=== PATIENT | female | born 1955 | race Caucasian/White ===

== ENCOUNTER 2017-09-09 10:56 | Observation (INO) | payer OTHER ==
--- NOTE | 2017-09-09 12:29 | PDOC ---
History of Present Illness - General Chief Complaint: Pain, Acute Stated Complaint: LT SIDE/ABD PAIN Time Seen by Provider: 09/09/17 12:16 - History of Present Illness Initial Comments: 09/09/17 12:28 61yo F with history of HTN, asthma, depression, arthritis, hysterectomy, and appendectomy who presents today with LLQ pain that originally started 1 month ago. The patient's pain subsided at that time, however her pain resurfaced this past thursday. She states it's a LLQ pain 6/10 in intensity, however worsens with palpation. Pt reports that the pain is alleviated with defecation and her last BM was a few minutes earlier. She also additionally endorses polyuria, but denies any dysuria or discharge. Pt denies any fever/chills, recent changes in weight, night sweats, nausea, vomiting, SOB, CP/discomfort, palpitations, history of cancer, sick contacts, eating lettuce or other foods. In addition she endorses not drinking enough fluids. Past History - Past Medical History Allergies/Adverse Reactions: Allergies Allergy/AdvReac Type Severity Reaction Status Date / Time codeine Allergy Verified 09/09/17 11:25 Home Medications: Ambulatory Orders Naproxen [Naprosyn -] 500 mg PO BID PRN #12 tablet 11/11/14 Asthma: Yes CVA: No COPD: No DVT: No HTN: Yes Psychiatric Problems: Yes (depression) - Family Disease History Family Disease History: Heart Disease: Father - Immunization History Immunization Up to Date: Yes - Suicide/Smoking/Psychosocial Hx Smoking History: Never smoked Have you smoked in the past 12 months: No Information on smoking cessation initiated: No Hx Alcohol Use: No Drug/Substance Use Hx: No Substance Use Type: None Hx Substance Use Treatment: No *Physical Exam - Vital Signs Last Vital Signs Temp Pulse Resp BP Pulse Ox 98.8 F 81 18 165/95 99 09/09/17 11:26 09/09/17 11:26 09/09/17 11:26 09/09/17 11:26 09/09/17 12:25 ED Treatment Course - LABORATORY CBC & Chemistry Diagram: 09/09/17 12:24 09/09/17 12:24 Medical Decision Making - Medical Decision Making 09/09/17 12:36 61yo F LLQ abdominal pain which is alleviated with BM; no fevers; no nausea; no vomiting --DDX includes diverticulitis vs. UTI vs. constipation vs. gastroenteritis vs. r/o mass vs. colitis? --CBC, CMP, Lipase, UA, Urine culture --Pt on physical exam looks dry: NS 500cc bolus --Pt allergic to codeine: ofirmev for pain control right now 09/09/17 14:25 Labs unremarkable --Of note: WBC WNL, UA without any leuk esterase or WBC, Lipase WNL Pt embarking to CT scan and reports some discomfort, but "is okay right now." No other developing symptoms reported 09/09/17 15:41 CT with acute noncomplicated diverticulitis. Incidentally found R noncalcified lung nodule noted with recommendation of follow-up low-dose CT if comparison isn 't available. --Levaquin 750mg PO --Flagyl 500mg PO --Given SIRS 0/4 will contact PCP to make sure there can be close f/u; if cannot contact or PCP would like can place in obs med/surg for antibiotics. 09/09/17 16:49 Could not get in contact with PCP; After PO medications pt's pain increased --Toradol 30mg IVP once (allergic to codeine) --will contact for obs m/s *DC/Admit/Observation/Transfer Diagnosis at time of Disposition: Diverticulitis - Discharge Dispostion Condition at time of disposition: Stable Admit: Yes - Referrals Referrals: Yovani Viera [Primary Care Provider] - - Patient Instructions Printed Discharge Instructions: DI for Diverticulitis - Post Discharge Activity
[2017-09-09] MEDS ORDERED: SODIUM CHLORIDE 500 ML IV STA ×2 (12:34→15:43)
[2017-09-09] MEDS ORDERED: ACETAMINOPHEN 1000 MG/100 ML VIAL (NON FORMULARY) IVPB ONE (12:35)
[2017-09-09] MEDS ORDERED: ACETAMINOPHEN INJECTION 100 ML IVPB ONE (12:55)
--- NOTE | 2017-09-09 12:55 | PDOC ---
Attending Attestation - Resident Resident Name: Yovani Jackson - ED Attending Attestation I have performed the following: I have examined & evaluated the patient, The case was reviewed & discussed with the resident, I agree w/resident's findings & plan, Exceptions are as noted - HPI HPI: 09/09/17 12:50 Ms Chely Rico is a 61 yo F presenting to the ER with LLQ pain Pt had these symptoms 1 month ago, pain resolved Sx began again thursday (4 days ago) Pain improves after defacation No fevers or chills Has had these symptoms 1 month ago, which self resolved Currently, pain is 6/10, no radiation 09/09/17 13:44 - Physicial Exam PE: 09/09/17 12:54 GENERAL: The patient is in no acute distress. LUNGS: Breath sounds equal, clear to auscultation bilaterally. No wheezes, and no crackles. HEART:Regular rate and rhythm, normal S1 and S2 without murmur, rub or gallop. ABDOMEN: Soft, LLQ tenderness to palpation, no involuntary guarding or rebound EXTREMITIES: Normal range of motion NEUROLOGICAL: Cranial nerves II through XII grossly intact. Normal speech. No focal neurological deficits. MUSCULOSKELETAL: Back non-tender to palpation, no CVA tenderness SKIN: Warm, Dry, normal turgor, no rashes or lesions noted. - Medical Decision Making 09/09/17 13:46 61-year-old female presenting to the emergency department with a complaint of left lower quadrant pain and tenderness. Pain improves after bowel movement. Fever, no chills. No vomiting, no diarrhea. Differential diagnosis includes but is not limited to: Diverticulitis (complicated versus uncomplicated), renal colic, ovarian pathology, Will do labs Will do CT Will re assess 09/11/17 08:00 CT demonstrates acute uncomplicated diverticulitis Pt has severe pain Will place on observation Levaquin and Flagyl Clinical Impression: acute uncomplicated diverticulitis, initial presentation
[2017-09-09 13:03] LABS: URINE APPEARANCE CLEAR; URINE BILIRUBIN NEGATIVE (<2.0 mg/dL); URINE BLOOD NEGATIVE (NEGATIVE); URINE COLOR LTYELLOW; URINE GLUCOSE (UA) NEGATIVE (NEGATIVE); URINE KETONE NEGATIVE (NEGATIVE); URINE LEUK ESTERASE NEGATIVE (NEGATIVE); URINE NITRITE NEGATIVE (NEGATIVE); URINE PROTEIN NEGATIVE (NEGATIVE); URINE UROBILINOGEN NEGATIVE mg/dL (0.2-1.0)
[2017-09-09 13:28] LABS: BASO % 1.1 % (0-2.0); EOS % 2.7 % (0-4.5); HEMATOCRIT 40.3 % (32.4-45.2); HEMOGLOBIN 13.5 GM/dL (10.7-15.3); LYMPH % 19.4 % (8-40); MCH 30.2 pg (25.7-33.7); MCHC 33.5 g/dl (32.0-36.0); MEAN CELL VOLUME 90.3 fl (80-96); MEAN PLT VOLUME 9.5 fl (7.5-11.1); MONO % 5.5 % (3.8-10.2); NEUT % 71.3 % (42.8-82.8); PLATELET COUNT 303 K/MM3 (134-434); RBC 4.47 M/mm3 (3.60-5.2); RDW 13.9 % (11.6-15.6); WHITE BLOOD COUNT 9.4 K/mm3 (4.0-10.0)
[2017-09-09 13:33] LABS: ALBUMIN 4.1 g/dl (3.4-5.0); ALK PHOS 75 U/L (45-117); ANION GAP 8 (8-16); BILIRUBIN,TOTAL 0.5 mg/dL (0.2-1.0); BLOOD UREA NITROGEN 13 mg/dL (7-18); CALCIUM 9.6 mg/dL (8.5-10.1); CHLORIDE 104 mmol/L (98-107); CO2 29 mmol/L (21-32); CREATININE 0.6 mg/dL (0.55-1.02); GLUCOSE,RANDOM 119 mg/dL (74-106); SGPT/ALT 35 U/L (12-78); SODIUM 141 mmol/L (136-145); TOT PROT 8.5 g/dl (6.4-8.2)
[2017-09-09 13:35] LABS: POTASSIUM 4.2 mmol/L (3.5-5.1); SGOT/AST 28 U/L (15-37)
[2017-09-09] MEDS ORDERED: metroNIDAZOLE 500 MG TABLET PO ONE (15:43)
[2017-09-09] MEDS ORDERED: levoFLOXacin 750 MG TABLET PO ONE (15:43)
[2017-09-09] MEDS ORDERED: metroNIDAZOLE 250 MG TABLET ONE (16:03)
[2017-09-09] MEDS ORDERED: KETOROLAC TROMETHAMINE 30 MG/1 ML VIAL IVPUSH ONE (16:46)
[2017-09-09] MEDS ORDERED: SODIUM CHLORIDE 1,000 ML IV SCH (17:00)
[2017-09-09] MEDS ORDERED: KETOROLAC TROMETHAMINE 30 MG/1 ML VIAL ONE (17:29)
[2017-09-09] MEDS ORDERED: PROMETHAZINE HCL 25 MG/1 ML VIAL IVPB PRN (17:41)
[2017-09-09] MEDS ORDERED: morphine CARPU-JECT 4 MG/1 ML DISP.SYRIN IVPUSH PRN (17:42)
[2017-09-09] MEDS ORDERED: ACETAMINOPHEN 1000 MG/100 ML VIAL (NON FORMULARY) IVPB PRN (17:44)
--- NOTE | 2017-09-09 17:45 | HP ---
CHIEF COMPLAINT: LLQ pain PCP: Dr duong villafana HISTORY OF PRESENT ILLNESS: 61yo F with PMH of HTN, asthma, depression, arthritis, who presents today with LLQ pain started on Thursday. Pain was 10/ 10 in intensity, intermittent, cramping type , radiating to back , gets better with bowel movement. Not associated with diarrhoea, blood in stool, nausea, vomiting, burning micturation, blood in urine. Denies loss of weight or change in apatite. Denies fever and chills. Reports she had salad fro [employer] on Thursday which she shared with her . HEr has no symptoms. Never had colonoscopy in past. As per patient her PCP sent her twice but she didn't want to get it done. ER course was notable for: (1)cbc, cmp, ua (2)ct abdoemen (3)IV fluid, levofloxacin and metronidazole. Recent Travel: no PAST MEDICAL HISTORY: as above PAST SURGICAL HISTORY:hystrectomy, appendectomy, tonsilectomy, right knee replacement Social History: Smoking:no Alcohol:no Drugs: no Family History: Allergies codeine Allergy (Verified 09/09/17 11:25) HOME MEDICATIONS: Home Medications Medication Instructions Recorded Naproxen [Naprosyn -] 500 mg PO BID PRN #12 tablet 11/11/14 REVIEW OF SYSTEMS CONSTITUTIONAL: Absent: fever, chills, diaphoresis, generalized weakness, malaise, loss of appetite, weight change HEENT: Absent: rhinorrhea, nasal congestion, throat pain, throat swelling, difficulty swallowing, mouth swelling, ear pain, eye pain, visual changes CARDIOVASCULAR: Absent: chest pain, syncope, palpitations, irregular heart rate, lightheadedness , peripheral edema RESPIRATORY: Absent: cough, shortness of breath, dyspnea with exertion, orthopnea, wheezing, stridor, hemoptysis GASTROINTESTINAL: as above GENITOURINARY: as above MUSCULOSKELETAL: Absent: myalgia, arthralgia, joint swelling, back pain, neck pain SKIN: Absent: rash, itching, pallor HEMATOLOGIC/IMMUNOLOGIC: Absent: easy bleeding, easy bruising, ENDOCRINE: Absent: unexplained weight gain, unexplained weight loss, NEUROLOGIC: Absent: headache, focal weakness or paresthesias, dizziness, PSYCHIATRIC: Absent: anxiety, PHYSICAL EXAMINATION Vital Signs - 24 hr 09/09/17 09/09/17 09/09/17 11:26 12:25 13:35 Temperature 98.8 F Pulse Rate 81 Pulse Rate [ 78 Apical] Respiratory 18 17 Rate Blood Pressure 165/95 Blood Pressure 144/70 [Right Arm] O2 Sat by Pulse 99 99 98 Oximetry (%) GENERAL: Awake, alert, and fully oriented, in no acute distress. HEAD: Normal with no signs of trauma. EARS, NOSE, THROAT: dry mucous membranes. NECK: Normal range of motion, supple without lymphadenopathy, JVD, or masses. LUNGS: Breath sounds equal, clear to auscultation bilaterally. No wheezes, and no crackles. No accessory muscle use. HEART: Regular rate and rhythm, normal S1 and S2 ABDOMEN:soft, tenderness in LLQ, mild rebound tenderness in LLQ, no guarding, no rigidity, NO Renal angle tenderness, BS +. MUSCULOSKELETAL: Normal range of motion at all joints. No bony deformities or tenderness UPPER EXTREMITIES: 2+ pulses, warm, well-perfused. No cyanosis. No clubbing. No peripheral edema. LOWER EXTREMITIES:warm, well-perfused. No calf tenderness. No peripheral edema. NEUROLOGICAL: Cranial nerves II-XII intact. Normal speech. PSYCHIATRIC: Cooperative. Good eye contact. Appropriate mood and affect. SKIN: Warm, dry, Laboratory Results - last 24 hr 09/09/17 09/09/17 09/09/17 12:24 12:24 12:24 WBC 9.4 RBC 4.47 Hgb 13.5 Hct 40.3 MCV 90.3 MCH 30.2 MCHC 33.5 RDW 13.9 Plt Count 303 MPV 9.5 Neutrophils % 71.3 Lymphocytes % 19.4 Monocytes % 5.5 Eosinophils % 2.7 Basophils % 1.1 Sodium 141 Potassium 4.2 Chloride 104 Carbon Dioxide 29 Anion Gap 8 BUN 13 Creatinine 0.6 Creat Clearance w eGFR > 60 Random Glucose 119 H Calcium 9.6 Total Bilirubin 0.5 AST 28 ALT 35 Alkaline Phosphatase 75 Total Protein 8.5 H Albumin 4.1 Lipase Urine Color Ltyellow Urine Appearance Clear Urine pH 6.0 Ur Specific [place] 1.009 Urine Protein Negative Urine Glucose (UA) Negative Urine Ketones Negative Urine Blood Negative Urine Nitrite Negative Urine Bilirubin Negative Urine Urobilinogen Negative Ur Leukocyte Esterase Negative 09/09/17 12:27 WBC RBC Hgb Hct MCV MCH MCHC RDW Plt Count MPV Neutrophils % Lymphocytes % Monocytes % Eosinophils % Basophils % Sodium Potassium Chloride Carbon Dioxide Anion Gap BUN Creatinine Creat Clearance w eGFR Random Glucose Calcium Total Bilirubin AST ALT Alkaline Phosphatase Total Protein Albumin Lipase 140 Urine Color Urine Appearance Urine pH Ur Specific [place] Urine Protein Urine Glucose (UA) Urine Ketones Urine Blood Urine Nitrite Urine Bilirubin Urine Urobilinogen Ur Leukocyte Esterase ASSESSMENT/PLAN: 61yo F with PMH of HTN, asthma, depression, arthritis, who presents today with LLQ pain started on Thursday. Diagnosed wit diverticulitis on CT scan. uncomplicated diverticulitis. IV fluid 125ml/hr NS antibiotics PO levaquin and flagyl for 7-10 days. If unable to tolerate po we will change it to IV. Pain control with acetaminophen. Patient allergic to codine. Monitor intake and output. phenergan for nausea and vomiting. started n clear liquid, if tolerates we will advance her diet in morning. never had colonoscopy in past. during discharge needs a GI referral. Monitor vitals once acute attacks settles down patient needs to be on stool softener. Lung nodule: incidental finding. Try to get old CT of CXR. Monitor, during discharge advise patient to get repeat CT scan in 6months. HTN not on medication. elevated will start her on amlodipine 5mg daily. depression: patient stopped taking her meds 2 year ago. needs to follow up with her psychiatrist after discharge Asthma albuterol prn singulair 10mg daily Fluid: NS 125ml/hr electrolyte: repea in am Nutrition:on clear liquid DVT pro; scd, ambulatory gi pro; pepcid dispo; obs Visit type - Emergency Visit Emergency Visit: Yes Care time: The patient presented to the Emergency Department on the above date and was hospitalized for further evaluation of their emergent condition. - New Patient This patient is new to me today: Yes Date on this admission: 09/09/17 - Critical Care Critical Care patient: No
[2017-09-09] MEDS: SODIUM CHLORIDE 1,000 ML IV SCH ×2 (17:49→21:18)
--- NOTE | 2017-09-09 19:09 | PN ---
Teaching Attending Note Name of Resident: Garland Olvera ATTENDING PHYSICIAN STATEMENT I saw and evaluated the patient. I reviewed the resident's note and discussed the case with the resident. I agree with the resident's findings and plan as documented. SUBJECTIVE: OBJECTIVE: Vital Signs Period Temp Pulse Resp BP Sys/Swanson Pulse Ox Last 24 Hr 98.6 F-98.8 F 77-81 17-18 138-165/70-95 98-99 Laboratory Results - last 24 hr 09/09/17 09/09/17 09/09/17 12:24 12:24 12:24 WBC 9.4 RBC 4.47 Hgb 13.5 Hct 40.3 MCV 90.3 MCH 30.2 MCHC 33.5 RDW 13.9 Plt Count 303 MPV 9.5 Neutrophils % 71.3 Lymphocytes % 19.4 Monocytes % 5.5 Eosinophils % 2.7 Basophils % 1.1 Sodium 141 Potassium 4.2 Chloride 104 Carbon Dioxide 29 Anion Gap 8 BUN 13 Creatinine 0.6 Creat Clearance w eGFR > 60 Random Glucose 119 H Calcium 9.6 Total Bilirubin 0.5 AST 28 ALT 35 Alkaline Phosphatase 75 Total Protein 8.5 H Albumin 4.1 Lipase Urine Color Ltyellow Urine Appearance Clear Urine pH 6.0 Ur Specific [place] 1.009 Urine Protein Negative Urine Glucose (UA) Negative Urine Ketones Negative Urine Blood Negative Urine Nitrite Negative Urine Bilirubin Negative Urine Urobilinogen Negative Ur Leukocyte Esterase Negative 09/09/17 12:27 WBC RBC Hgb Hct MCV MCH MCHC RDW Plt Count MPV Neutrophils % Lymphocytes % Monocytes % Eosinophils % Basophils % Sodium Potassium Chloride Carbon Dioxide Anion Gap BUN Creatinine Creat Clearance w eGFR Random Glucose Calcium Total Bilirubin AST ALT Alkaline Phosphatase Total Protein Albumin Lipase 140 Urine Color Urine Appearance Urine pH Ur Specific [place] Urine Protein Urine Glucose (UA) Urine Ketones Urine Blood Urine Nitrite Urine Bilirubin Urine Urobilinogen Ur Leukocyte Esterase Home Medications Medication Instructions Recorded Naproxen [Naprosyn -] 500 mg PO BID PRN #12 tablet 11/11/14 ASSESSMENT AND PLAN:
[2017-09-09] MEDS: FAMOTIDINE 20 MG/50 ML IVPB 20 MG/50 ML MG IVPB SCH (21:17)
[2017-09-09] MEDS: metroNIDAZOLE 250 MG TABLET PO SCH (21:19)
[2017-09-09 23:59] VITALS: BMI 29.5
[2017-09-10] MEDS ORDERED: PT OWN MED DRAWER 7, Y5N ONE ×2 (05:58→09:34)
[2017-09-10] MEDS: metroNIDAZOLE 250 MG TABLET PO SCH ×2 (05:59→13:45)
[2017-09-10 07:15] LABS: BASO % 1.1 % (0-2.0); HEMATOCRIT 37.4 % (32.4-45.2); HEMOGLOBIN 12.6 GM/dL (10.7-15.3); LYMPH % 22.3 % (8-40); MCH 30.5 pg (25.7-33.7); MCHC 33.7 g/dl (32.0-36.0); MEAN CELL VOLUME 90.5 fl (80-96); MEAN PLT VOLUME 8.9 fl (7.5-11.1); MONO % 7.7 % (3.8-10.2); NEUT % 65.9 % (42.8-82.8); PLATELET COUNT 288 K/MM3 (134-434); RBC 4.13 M/mm3 (3.60-5.2); RDW 13.7 % (11.6-15.6); WHITE BLOOD COUNT 8.4 K/mm3 (4.0-10.0)
[2017-09-10 07:23] LABS: INR 1.22 (0.82-1.09); PROTHROMBIN TIME (PATIENT) 13.8 SEC (9.7-13.0)
[2017-09-10 07:44] LABS: ALBUMIN 3.5 g/dl (3.4-5.0); ALK PHOS 66 U/L (45-117); ANION GAP 4 (8-16); BILIRUBIN,TOTAL 0.5 mg/dL (0.2-1.0); BLOOD UREA NITROGEN 9 mg/dL (7-18); CALCIUM 8.6 mg/dL (8.5-10.1); CHLORIDE 108 mmol/L (98-107); CO2 29 mmol/L (21-32); CREATININE 0.7 mg/dL (0.55-1.02); GLUCOSE,RANDOM 102 mg/dL (74-106); MAGNESIUM 1.8 mg/dL (1.8-2.4); PHOSPHOROUS 2.6 mg/dL (2.5-4.9); POTASSIUM 3.7 mmol/L (3.5-5.1); SGOT/AST 20 U/L (15-37); SGPT/ALT 31 U/L (12-78); SODIUM 141 mmol/L (136-145); TOT PROT 7.5 g/dl (6.4-8.2)
[2017-09-10] MEDS ORDERED: ACETAMINOPHEN 325 MG TABLET (FP) PO PRN (07:50)
[2017-09-10] MEDS ORDERED: levoFLOXacin 750 MG TABLET PO SCH (10:00)
[2017-09-10 11:18] VITALS: BP 155/86; TEMP 98.4
[2017-09-10] MEDS: FAMOTIDINE 20 MG/50 ML IVPB 20 MG/50 ML MG IVPB SCH (11:40)
[2017-09-10] MEDS ORDERED: diazePAM 2 MG TABLET PO ONE (12:30)
--- NOTE | 2017-09-10 12:57 | EKG ---
Test Reason : Blood Pressure : / mmHG Vent. Rate : 085 BPM Atrial Rate : 085 BPM P-R Int : 162 ms QRS Dur : 082 ms QT Int : 384 ms P-R-T Axes : 042 -06 011 degrees QTc Int : 456 ms NORMAL SINUS RHYTHM LOW VOLTAGE QRS BORDERLINE ECG NO PREVIOUS ECGS AVAILABLE Confirmed by AUGUSTO BHATTI MD ([id number]) on 09/10/2017 12:57:01 PM Referred By: Confirmed By:AUGUSTO BHATTI MD
[2017-09-10 14:32] VITALS: PULSE 83
--- NOTE | 2017-09-10 16:25 | DS ---
Physical Exam: Selected Entries 09/10/17 09/10/17 09/10/17 01:11 10:00 14:31 Temperature 98.4 F Pulse Rate 83 Respiratory 20 Rate Blood Pressure 155/86 O2 Sat by Pulse 99 Oximetry (%) Oxygen Delivery Room Air Method Laboratory Tests 09/09/17 09/10/17 09/10/17 12:24 06:55 06:55 WBC 8.4 Hgb 12.6 Hct 37.4 Plt Count 288 INR 1.22 H Sodium Potassium Chloride Carbon Dioxide Anion Gap BUN Creatinine Random Glucose Urine Color Ltyellow Urine Appearance Clear Urine pH 6.0 Ur Specific [place] 1.009 Urine Protein Negative Urine Glucose (UA) Negative Urine Ketones Negative Urine Blood Negative Urine Nitrite Negative Urine Bilirubin Negative Urine Urobilinogen Negative Ur Leukocyte Esterase Negative 09/10/17 06:55 WBC Hgb Hct Plt Count INR Sodium 141 Potassium 3.7 Chloride 108 H Carbon Dioxide 29 Anion Gap 4 L BUN 9 Creatinine 0.7 Random Glucose 102 Urine Color Urine Appearance Urine pH Ur Specific [place] Urine Protein Urine Glucose (UA) Urine Ketones Urine Blood Urine Nitrite Urine Bilirubin Urine Urobilinogen Ur Leukocyte Esterase Microbiology 09/09/17 12:38 Urine - Urine Clean Catch Urine Culture - Final NO GROWTH OBTAINED Abd pelvis ct- uncomplicated acute sigmoid diverticulitis, hepatic steatosis, cholelithiasis, 6mm noncalcified nodule in right lung base is nonspecific. an f/ u with 6-[address] HOSPITAL COURSE: Date of Admission:09/09/17 Date of Discharge: 09/10/17 61yo F with PMH of HTN, asthma, depression, arthritis, who presented with LLQ pain admitted for uncomplicated sigmoid diverticulitis. Patient treated with iv antibioitcs, IVF, and symptom control. She imrpoved and was discharged with po levaquin/flagyl and will complete a 10 day course. She will f/u with her pcp and gi doctor. She will need a colonoscopy in 4 weeks to evaluate her colon. She also had a lung nodule found on abd pelvis ct and can be f/u outpatient. Minutes to complete discharge: 36 Discharge Summary Reason For Visit: DIVERTICULITIS Current Active Problems Diverticulitis (Acute) Asthma (Chronic) Depression (Chronic) HTN (hypertension) (Chronic) Condition: Stable - Instructions Diet, Activity, Other Instructions: You were in the hospital for acute diverticulitis. Diverticulitis is a condition that occurs when small pockets along your intestine called diverticula become inflamed or infected. This is caused by hard bowel movements , food, or bacteria that get stuck in the pockets. Follow up with your primary care provider within 1 week. A referral to our resident clinic has been provided for you if you do not have a primary care physician. Follow up with a GI doctor within 1 week. A referral has been provided for you. You will need a colonoscopy within 4 weeks. Take levaquin 750 mg 1 tablet daily and flagyl 500 mg 1 tablet three times per day for a total of 9 more days (will complete treatment September 19) Continue your other home medications as prescribed. Contact your healthcare provider if: You have pain when you urinate. Your symptoms get worse or do not go away. You have questions or concerns about your condition or care. Return to the emergency department if: You have severe diarrhea. You urinate less than usual or not at all. You are not able to have a bowel movement. You cannot stop vomiting. You have severe abdominal pain, a fever, and your abdomen is larger than usual. You have new or increased blood in your bowel movements. You have chest pain or trouble breathing. Referrals: Javan Santizo MD [Staff Physician] - 1 Week Yovani Viera [Primary Care Provider] - 1 Week Benjamin Palomo DO [Staff Physician] - Disposition: HOME - Home Medications Comprehensive Discharge Medication List: Ambulatory Orders Naproxen [Naprosyn -] 500 mg PO BID PRN #12 tablet 11/11/14 Montelukast Na [Singulair -] 10 mg PO HS tablet 09/10/17 levoFLOXacin [Levaquin] 750 mg PO DAILY #9 tab 09/10/17 metroNIDAZOLE [Flagyl -] 500 mg PO TID #27 tablet 09/10/17 This patient is new to me today: No Emergency Visit: Yes ED Registration Date: 09/09/17 Care time: The patient presented to the Emergency Department on the above date and was hospitalized for further evaluation of their emergent condition. Critical Care patient: No - Discharge Referral Referred to [facility] No
--- NOTE | 2017-09-10 19:26 | PN ---
Teaching Attending Note Name of Resident: Noble Andino ATTENDING PHYSICIAN STATEMENT I saw and evaluated the patient. I reviewed the resident's note and discussed the case with the resident. I agree with the resident's findings and plan as documented. SUBJECTIVE: OBJECTIVE: Vital Signs Period Temp Pulse Resp BP Sys/Swanson Pulse Ox Last 24 Hr 80 F-98.7 F 80-85 20-20 136-155/71-86 99-99 Laboratory Results - last 24 hr 09/10/17 09/10/17 09/10/17 06:55 06:55 06:55 WBC 8.4 RBC 4.13 Hgb 12.6 Hct 37.4 MCV 90.5 MCH 30.5 MCHC 33.7 RDW 13.7 Plt Count 288 MPV 8.9 Neutrophils % 65.9 Lymphocytes % 22.3 Monocytes % 7.7 Eosinophils % 3.0 Basophils % 1.1 PT with INR 13.80 H INR 1.22 H Sodium 141 Potassium 3.7 Chloride 108 H Carbon Dioxide 29 Anion Gap 4 L BUN 9 Creatinine 0.7 Creat Clearance w eGFR > 60 Random Glucose 102 Calcium 8.6 Phosphorus 2.6 Magnesium 1.8 Total Bilirubin 0.5 AST 20 ALT 31 Alkaline Phosphatase 66 Total Protein 7.5 Albumin 3.5 ASSESSMENT AND PLAN:
[2017-09-10] MEDS ORDERED: MONTELUKAST NA 10 MG TABLET PO SCH (22:00)
== END 2017-09-10 18:00 | disposition home or self-care (01) ==
LOC: JER 10:56 → JERFT 10:56 → JERBED 17:12 → J6S 18:40
PROVIDERS: ADMIT Internal Medicine; ATTEND Internal Medicine
PROC: 3E0333Z Introduction of Anti-inflammatory into Peripheral Vein, Percutaneous Approach (ICD-10-PCS; principal; 2017-09-09)
PROC: 3E033GC Introduction of Other Therapeutic Substance into Peripheral Vein, Percutaneous Approach (ICD-10-PCS; 2017-09-09)
PROC: 3E0337Z Introduction of Electrolytic and Water Balance Substance into Peripheral Vein, Percutaneous Approach (ICD-10-PCS; 2017-09-09)
DX: I10 Essential (primary) hypertension (principal); J45.909 Unspecified asthma, uncomplicated; F32.9 Major depressive disorder, single episode, unspecified; M19.90 Unspecified osteoarthritis, unspecified site; Z90.710 Acquired absence of both cervix and uterus; Z90.89 Acquired absence of other organs; Z88.5 Allergy status to narcotic agent
CPT/HCPCS: 36415; 74177-TC; 80053; 81003; 83690; 83735; 84100; 85025; 85610; 87086; 93005; 93010; 99284-25; G0378; J0131; J7030

== ENCOUNTER 2017-09-19 05:03 | Emergency (ER) | payer OTHER ==
--- NOTE | 2017-09-19 05:15 | PDOC ---
History of Present Illness - General Chief Complaint: Nausea/Vomiting Stated Complaint: ABD PAIN Time Seen by Provider: 09/19/17 05:14 History Source: Patient Exam Limitations: No Limitations - History of Present Illness Travel History: No Initial Comments: 09/19/17 05:33 Best Contact: Pmhx: Asthma, arthritis, hypertension, depression, diverticulitis Pshx: Total abdominal hysterectomy, laparoscopic appendectomy Allergies: Codeine/rash 61-year-old female presents to the emergency department complaining of epigastric abdominal discomfort since 0100 hrs. while sleeping. Pain is described as 8/10 achy nonradiating intermittent discomfort with nausea but no vomiting. Patient denies fever, chills, facial pains, neck pains, back pains, chest pain, shortness of breath, flank pain, urinary symptoms: Frequency/urgency /hesitancy, hematuria. Patient states she was recently diagnosed with diverticulitis but this pain is more to her epigastrium. Pt states she made home cook drumsticks and had an "upset stomach" shortly afterwards. Past History - Past Medical History Allergies/Adverse Reactions: Allergies Allergy/AdvReac Type Severity Reaction Status Date / Time codeine Allergy Verified 09/09/17 11:25 Home Medications: Ambulatory Orders Naproxen [Naprosyn -] 500 mg PO BID PRN #12 tablet 11/11/14 Montelukast Na [Singulair -] 10 mg PO HS tablet 09/10/17 levoFLOXacin [Levaquin] 750 mg PO DAILY #9 tab 09/10/17 metroNIDAZOLE [Flagyl -] 500 mg PO TID #27 tablet 09/10/17 Asthma: Yes CVA: No COPD: No DVT: No HTN: Yes Psychiatric Problems: Yes (depression) - Family Disease History Family Disease History: Heart Disease: Father - Immunization History Immunization Up to Date: Yes - Suicide/Smoking/Psychosocial Hx Smoking History: Never smoked Have you smoked in the past 12 months: No Hx Alcohol Use: No Drug/Substance Use Hx: No Substance Use Type: None Hx Substance Use Treatment: No Review of Systems - Review of Systems Able to Perform ROS?: Yes Comments:: 09/19/17 05:33 CONSTITUTIONAL: Absent: fever, chills, diaphoresis, generalized weakness, malaise, loss of appetite HEENT: Absent: rhinorrhea, nasal congestion, throat pain, throat swelling, difficulty swallowing, mouth swelling, ear pain, eye pain, visual Changes CARDIOVASCULAR: Absent: chest pain, loss of consciousness, palpitations, irregular heart rate, peripheral edema RESPIRATORY: Absent: cough, shortness of breath, dyspnea with exertion, orthopnea, wheezing, stridor, hemoptysis GASTROINTESTINAL: +epigastric abd pain Absent: abdominal distension, nausea, vomiting, diarrhea, constipation, melena, hematochezia GENITOURINARY: Absent: dysuria, frequency, urgency, hesitancy, hematuria, flank pain, genital pain MUSCULOSKELETAL: Absent: myalgia, arthralgia, joint swelling SKIN: Absent: rash, itching, pallor HEMATOLOGIC/IMMUNOLOGIC: Absent: easy bleeding, easy bruising, lymphadenopathy, frequent infections Is the patient limited Slovenian proficient: No *Physical Exam - Physical Exam Comments: 09/19/17 05:34 GENERAL: Well developed, well nourished. Awake and alert. No acute distress. HEENT: Normocephalic, atraumatic. PERRLA, EOMI. No conjunctival pallor. Sclera are non- icteric. Moist mucous membranes. Oropharynx is clear. NECK: Supple. Full ROM. No JVD. Carotid pulses 2+ and symmetric, without bruits. No thyromegaly. No lymphadenopathy. CARDIOVASCULAR: Regular rate and rhythm. No murmurs, rubs, or gallops. Distal pulses are 2+ and symmetric. PULMONARY: No evidence of respiratory distress. Lungs clear to auscultation bilaterally. No wheezing, rales or rhonchi. ABDOMINAL: +epigastric pain on palp Soft. Non-tender. No rebound or guarding. No organomegaly. Normoactive bowel sounds. MUSCULOSKELETAL Normal range of motion at all joints. No bony deformities or tenderness. No CVA tenderness. EXTREMITIES: No cyanosis. No clubbing. No edema. No calf tenderness. SKIN: Warm and dry. Normal capillary refill. No rashes. No jaundice. ED Treatment Course - LABORATORY CBC & Chemistry Diagram: 09/19/17 05:18 09/19/17 05:18 Progress Note - Progress Note Progress Note: [id number]: Signed out to Dr. Arriaga *DC/Admit/Observation/Transfer Diagnosis at time of Disposition: Nausea, Epigastric abdominal pain - Discharge Dispostion Disposition: HOME Condition at time of disposition: Stable Admit: No - Referrals Referrals: Yovani Viera [Primary Care Provider] - Leo Romeo MD [Staff Physician] - - Patient Instructions Printed Discharge Instructions: DI for Nausea -- Adult, DI for Epigastric Pain Additional Instructions: Please make an appointment to see your PMD on Thursday. Please stick to clear liquids over the weekend along with the BRAT diet (bananas, rice, apple sauce, and toast). Please follow up with the health safety specialist next week if the pain persists. Please return to the ED with any further complaints. - Post Discharge Activity
[2017-09-19] MEDS ORDERED: SODIUM CHLORIDE 1,000 ML IV STA ×2 (05:16→06:33)
[2017-09-19] MEDS ORDERED: MAG HYDROX/AL HYDROX/SIMETH 30 ML UNIT-DOSE CUP PO ONE (05:16)
[2017-09-19 05:18] VITALS: BMI 35.9
[2017-09-19] MEDS ORDERED: MAG HYDROX/AL HYDROX/SIMETH 30 ML UNIT-DOSE CUP ONE (05:21)
[2017-09-19] MEDS ORDERED: FAMOTIDINE 20 MG/50 ML IVPB 20 MG/50 ML MG IVPB ONE (05:21)
[2017-09-19 05:24] LABS: BASO % 0.5 % (0-2.0); EOS % 1.4 % (0-4.5); HEMATOCRIT 39.7 % (32.4-45.2); HEMOGLOBIN 13.4 GM/dL (10.7-15.3); LYMPH % 13.1 % (8-40); MCH 30.2 pg (25.7-33.7); MCHC 33.6 g/dl (32.0-36.0); MEAN CELL VOLUME 89.7 fl (80-96); MONO % 5.3 % (3.8-10.2); NEUT % 79.7 % (42.8-82.8); PLATELET COUNT 292 K/MM3 (134-434); RBC 4.43 M/mm3 (3.60-5.2); RDW 13.5 % (11.6-15.6); WHITE BLOOD COUNT 12.8 K/mm3 (4.0-10.0)
[2017-09-19 05:53] LABS: ALBUMIN 3.9 g/dl (3.4-5.0); ANION GAP 5 (8-16); BILIRUBIN,TOTAL 0.4 mg/dL (0.2-1.0); BLOOD UREA NITROGEN 16 mg/dL (7-18); CALCIUM 8.9 mg/dL (8.5-10.1); CHLORIDE 101 mmol/L (98-107); CO2 30 mmol/L (21-32); CREATININE 0.8 mg/dL (0.55-1.02); GLUCOSE,RANDOM 145 mg/dL (74-106); LIPASE 143 U/L (73-393); POTASSIUM 3.9 mmol/L (3.5-5.1); SGOT/AST 19 U/L (15-37); SGPT/ALT 34 U/L (12-78); SODIUM 136 mmol/L (136-145); TOT PROT 8.1 g/dl (6.4-8.2)
[2017-09-19 05:55] LABS: ALK PHOS 68 U/L (45-117)
[2017-09-19] MEDS ORDERED: ACETAMINOPHEN 1000 MG/100 ML VIAL (NON FORMULARY) IVPB ONE (06:16)
[2017-09-19] MEDS ORDERED: ONDANSETRON 4 MG/2 ML VIAL IVPUSH ONE (06:32)
[2017-09-19] MEDS ORDERED: morphine CARPU-JECT 2 MG/1 ML DISP.SYRIN IVPUSH ONE (06:32)
[2017-09-19] MEDS ORDERED: ACETAMINOPHEN INJECTION 100 ML IVPB ONE (06:33)
[2017-09-19] MEDS ORDERED: MORPHINE SULFATE 10 MG/1 ML *VIAL ONE (06:42)
[2017-09-19] MEDS ORDERED: ONDANSETRON 4 MG/2 ML VIAL ONE (06:44)
--- NOTE | 2017-09-19 07:32 | PDOC ---
*Physical Exam - Vital Signs Last Vital Signs Temp Pulse Resp BP Pulse Ox 98.2 F 81 18 179/82 100 09/19/17 05:13 09/19/17 05:13 09/19/17 05:13 09/19/17 05:13 09/19/17 05:13 - Physical Exam Comments: 09/19/17 07:31 gen: sleeping, but easily arousable heart: +s1s2 reg Lungs: cta b/l abd: soft, nt/nd +bs Ext: no c/c/e ED Treatment Course - LABORATORY CBC & Chemistry Diagram: 09/19/17 05:18 09/19/17 05:18 - ADDITIONAL ORDERS Additional order review: Laboratory Results 09/19/17 05:18 Sodium 136 Potassium 3.9 Chloride 101 Carbon Dioxide 30 Anion Gap 5 L BUN 16 Creatinine 0.8 Creat Clearance w eGFR > 60 Random Glucose 145 H Calcium 8.9 Total Bilirubin 0.4 AST 19 ALT 34 Alkaline Phosphatase 68 Creatine Kinase 83 Troponin I 0.03 Total Protein 8.1 Albumin 3.9 Lipase 143 09/19/17 05:18 RBC 4.43 MCV 89.7 MCHC 33.6 RDW 13.5 MPV 9.0 Neutrophils % 79.7 D Lymphocytes % 13.1 D Monocytes % 5.3 Eosinophils % 1.4 Basophils % 0.5 - Medications Given in the ED: ED Medications Discontinued Medications Generic Name Dose Route Start Last Admin Trade Name Jasonq PRN Reason Stop Dose Admin Acetaminophen 1,000 mg 09/19/17 06:16 09/19/17 06:32 Ofirmev Injection - IVPB 09/19/17 06:17 1,000 mg ONCE ONE Administration Al Hydroxide/Mg Hydroxide 30 ml 09/19/17 05:16 09/19/17 05:32 Mylanta Oral Suspension - PO 09/19/17 05:17 30 ml ONCE ONE Administration Sodium Chloride 1,000 mls @ 1,000 mls/hr 09/19/17 05:16 09/19/17 05:32 Normal Saline - IV 09/19/17 06:15 1,000 mls/hr ASDIR STA Administration Morphine Sulfate 2 mg 09/19/17 06:32 09/19/17 06:40 Morphine Injection - IVPUSH 09/19/17 06:33 2 mg ONCE ONE Administration Ondansetron HCl 4 mg 09/19/17 06:32 09/19/17 06:40 Zofran Injection IVPUSH 09/19/17 06:33 4 mg ONCE ONE Administration Medical Decision Making - Medical Decision Making 09/19/17 07:31 a/p: 61yo female with abd pain, n that started overnight after eating some chicken -labs reviewed without acute findings pt states pain and nausea has resolved po challenge given discussed lab results with the patient pt wants to go home 09/19/17 07:36 mildly elevated wbc secondary to poss food poisoning vs viral infection 09/19/17 08:34 pt feeling much better tolerated po stable for d/c to home *DC/Admit/Observation/Transfer Diagnosis at time of Disposition: Nausea, Epigastric abdominal pain - Discharge Dispostion Disposition: HOME Condition at time of disposition: Stable Admit: No - Referrals Referrals: Yovani Viera [Primary Care Provider] - Leo Romeo MD [Staff Physician] - - Patient Instructions Printed Discharge Instructions: DI for Nausea -- Adult, DI for Epigastric Pain Additional Instructions: Please make an appointment to see your PMD on Thursday. Please stick to clear liquids over the weekend along with the BRAT diet (bananas, rice, apple sauce, and toast). Please follow up with the floor layer next week if the pain persists. Please return to the ED with any further complaints. - Post Discharge Activity - Attestations Physician Attestion: 09/19/17 08:36 I, Dr. Martha Kellogg, DO, attest that this document has been prepared under my direction and personally reviewed by me in its entirety. I further attest, that it accurately reflects all work, treatment, procedures and medical decision -making performed by me.
[2017-09-19 07:48] VITALS: TEMP 97.5
[2017-09-19 08:35] VITALS: BP 136/85; PULSE 76
--- NOTE | 2017-09-19 08:47 | PDOC ---
*Physical Exam - Vital Signs Last Vital Signs Temp Pulse Resp BP Pulse Ox 97.5 F L 76 16 136/85 96 09/19/17 07:47 09/19/17 08:34 09/19/17 08:34 09/19/17 08:34 09/19/17 08:34 ED Treatment Course - LABORATORY CBC & Chemistry Diagram: 09/19/17 05:18 09/19/17 05:18 - ADDITIONAL ORDERS Additional order review: Laboratory Results 09/19/17 05:18 Sodium 136 Potassium 3.9 Chloride 101 Carbon Dioxide 30 Anion Gap 5 L BUN 16 Creatinine 0.8 Creat Clearance w eGFR > 60 Random Glucose 145 H Calcium 8.9 Total Bilirubin 0.4 AST 19 ALT 34 Alkaline Phosphatase 68 Creatine Kinase 83 Troponin I 0.03 Total Protein 8.1 Albumin 3.9 Lipase 143 09/19/17 05:18 RBC 4.43 MCV 89.7 MCHC 33.6 RDW 13.5 MPV 9.0 Neutrophils % 79.7 D Lymphocytes % 13.1 D Monocytes % 5.3 Eosinophils % 1.4 Basophils % 0.5 - Medications Given in the ED: ED Medications Discontinued Medications Generic Name Dose Route Start Last Admin Trade Name Freq PRN Reason Stop Dose Admin Acetaminophen 1,000 mg 09/19/17 06:16 09/19/17 06:32 Ofirmev Injection - IVPB 09/19/17 06:17 1,000 mg ONCE ONE Administration Al Hydroxide/Mg Hydroxide 30 ml 09/19/17 05:16 09/19/17 05:32 Mylanta Oral Suspension - PO 09/19/17 05:17 30 ml ONCE ONE Administration Sodium Chloride 1,000 mls @ 1,000 mls/hr 09/19/17 05:16 09/19/17 05:32 Normal Saline - IV 09/19/17 06:15 1,000 mls/hr ASDIR STA Administration Sodium Chloride 1,000 mls @ 1,000 mls/hr 09/19/17 06:33 09/19/17 06:40 Normal Saline - IV 09/19/17 07:32 1,000 mls/hr ASDIR STA Administration Morphine Sulfate 2 mg 09/19/17 06:32 09/19/17 06:40 Morphine Injection - IVPUSH 09/19/17 06:33 2 mg ONCE ONE Administration Ondansetron HCl 4 mg 09/19/17 06:32 09/19/17 06:40 Zofran Injection IVPUSH 09/19/17 06:33 4 mg ONCE ONE Administration Medical Decision Making - Medical Decision Making 09/19/17 08:46 Patient comfortable and currently pain free. Understands discharge and follow up instructions. *DC/Admit/Observation/Transfer Diagnosis at time of Disposition: Nausea, Epigastric abdominal pain - Discharge Dispostion Disposition: HOME Condition at time of disposition: Stable Admit: No - Referrals Referrals: Yovani Viera [Primary Care Provider] - Leo Romeo MD [Staff Physician] - - Patient Instructions Printed Discharge Instructions: DI for Nausea -- Adult, DI for Epigastric Pain Additional Instructions: Please make an appointment to see your PMD on Thursday. Please stick to clear liquids over the weekend along with the BRAT diet (bananas, rice, apple sauce, and toast). Please follow up with the grazing examiner next week if the pain persists. Please return to the ED with any further complaints. - Post Discharge Activity
[2017-09-19] MEDS ORDERED: FAMOTIDINE IV 20 MG/12 ML VIAL IVPUSH SCH (10:00)
--- NOTE | 2017-09-19 14:33 | EKG ---
Test Reason : Blood Pressure : / mmHG Vent. Rate : 070 BPM Atrial Rate : 070 BPM P-R Int : 152 ms QRS Dur : 080 ms QT Int : 396 ms P-R-T Axes : 000 181 175 degrees QTc Int : 427 ms NORMAL SINUS RHYTHM RIGHT SUPERIOR AXIS DEVIATION LOW VOLTAGE QRS CANNOT RULE OUT ANTERIOR INFARCT , AGE UNDETERMINED T WAVE ABNORMALITY, CONSIDER INFERIOR ISCHEMIA ABNORMAL ECG WHEN COMPARED WITH ECG OF 09-SEP-2017 17:52, QRS AXIS SHIFTED LEFT T WAVE INVERSION NOW EVIDENT IN LATERAL LEADS Confirmed by MD Cory, Darin ([id number]) on 09/19/2017 2:32:57 PM Referred By: Confirmed By:Darin Ray MD
== END 2017-09-19 08:52 | disposition home or self-care (01) ==
LOC: JER 05:03
PROC: 3E033GC Introduction of Other Therapeutic Substance into Peripheral Vein, Percutaneous Approach (ICD-10-PCS; principal; 2017-09-19)
PROC: 3E033NZ Introduction of Analgesics, Hypnotics, Sedatives into Peripheral Vein, Percutaneous Approach (ICD-10-PCS; 2017-09-19)
PROC: 3E033NZ Introduction of Analgesics, Hypnotics, Sedatives into Peripheral Vein, Percutaneous Approach (ICD-10-PCS; 2017-09-19)
DX: R10.13 Epigastric pain (principal); R11.2 Nausea with vomiting, unspecified; I10 Essential (primary) hypertension; J45.909 Unspecified asthma, uncomplicated; M12.9 Arthropathy, unspecified; F32.9 Major depressive disorder, single episode, unspecified; K57.92 Diverticulitis of intestine, part unspecified, without perforation or abscess without bleeding
CPT/HCPCS: 36415; 71046-TC-FY; 80053; 82550; 83690; 84484; 85025; 93005; 93010; 99282-25; J0131; J7030

== ENCOUNTER 2017-11-16 11:28 | Day surgery (SDC) | payer OTHER ==
--- NOTE | 2017-11-16 12:12 | PROC ---
Endoscopy Procedure Endoscopy procedure completed. Please see scanned procedure report.
[2017-11-16 12:21] VITALS: BMI 28.6
[2017-11-16] MEDS ORDERED: PROPOFOL 20 ML ONE ×2 (12:44)
[2017-11-16 13:40] VITALS: TEMP 98.5
[2017-11-16 14:38] VITALS: BP 125/66; PULSE 73
--- NOTE | 2017-11-19 17:04 | PATH ---
Surgical Pathology Report Patient Name: LUCAS ALICIA [facility]. Rec. #: [id number] /Age/Gender: 1955 (Age: 61) / F Account: [id number] Location: [facility]ENDOSCOPY Taken: 11/16/2017 Received: 11/17/2017 Reported: 11/19/2017 Physicians: Jim Trevino M.D. Specimen(s) Received POLYP SIGMOID Clinical History Screening colonoscopy Final Diagnosis SIGMOID COLON, POLYP, POLYPECTOMY: TUBULAR ADENOMA. Electronically Signed Maggie Brown M.D. Gross Description Received in formalin labeled "polyp from sigmoid colon," is a 0.5 cm in greatest dimension shearer, polypoid portion of soft tissue. The specimen is submitted in toto in one cassette. /11/17/201711/17/2017
== END 2017-11-16 14:44 | disposition home or self-care (01) ==
LOC: JASU-ENDO 11:28
PROVIDERS: ATTEND Internal Medicine Gastroenterology
PROC: 3E0H8GC Introduction of Other Therapeutic Substance into Lower GI, Via Natural or Artificial Opening Endoscopic (ICD-10-PCS; 2017-11-16)
PROC: 0DBN8ZX Excision of Sigmoid Colon, Via Natural or Artificial Opening Endoscopic, Diagnostic (ICD-10-PCS; principal; 2017-11-16 12:15)
DX: Z12.11 Encounter for screening for malignant neoplasm of colon (principal); D12.5 Benign neoplasm of sigmoid colon; K57.30 Diverticulosis of large intestine without perforation or abscess without bleeding
CPT/HCPCS: 88305-TC

== ENCOUNTER 2018-01-16 08:25 | Inpatient (IN) | payer OTHER ==
[2018-01-16 08:29] VITALS: BMI 28.5
[2018-01-16] MEDS ORDERED: ACETAMINOPHEN 1000 MG/100 ML VIAL (NON FORMULARY) IVPB ONE (09:20)
[2018-01-16] MEDS ORDERED: MAG HYDROX/AL HYDROX/SIMETH 30 ML UNIT-DOSE CUP PO ONE (09:20)
[2018-01-16] MEDS ORDERED: SUCRALFATE 1 GM TABLET (FP) PO ONE (09:20)
[2018-01-16] MEDS ORDERED: ONDANSETRON 4 MG/2 ML VIAL IVPB ONE (09:22)
[2018-01-16] MEDS ORDERED: FAMOTIDINE 20 MG/50 ML IVPB 20 MG/50 ML MG IVPB ONE ×2 (09:22→09:30)
--- NOTE | 2018-01-16 09:26 | PDOC ---
History of Present Illness - General Chief Complaint: Nausea/Vomiting Stated Complaint: ABD PAIN, NAUSEA/VOMITING Time Seen by Provider: 01/16/18 08:55 - History of Present Illness Initial Comments: 01/16/18 09:19 62 yo F with h/o diverticulitis, and asthma who p/w epigastric pain. Patient with unremitting, crampy, epigatsric pain beginning at 0700 PM (01/14/18). Pain 10/10. Pain associated with 7 episodes of non bilious, non bloody emesis, with last episode this AM. Denies hematemsis. No identifiable alleviators or triggers. Attempted OTC Mylanta without relief. Normal daily stools. Patient denies F/C, CP, SOB, cough, wheezing, urinary complaints, hematuria, abdominal pain, diarrhea, constipation, BPR, lightheadedness, weakness, sensory changes. PMHx: as noted above. Endosocpy 11/16/17 unremarkable. Colonoscopy 11/16/17 with polyps. Surgical: Appendectomy. ROS: as noted SHx: Denies Etoh, IVDA, tobacco use. No change in diet or recent travels. Allergies: Codeine-Hives GI Dr. Trevino Past History - Past Medical History Allergies/Adverse Reactions: Allergies Allergy/AdvReac Type Severity Reaction Status Date / Time codeine Allergy Verified 01/16/18 08:28 duloxetine [From Cymbalta] AdvReac Intermediate Nausea Verified 01/16/18 08:28 Home Medications: Ambulatory Orders Naproxen [Naprosyn -] 500 mg PO BID PRN #12 tablet 11/11/14 Montelukast Na [Singulair -] 10 mg PO HS tablet 09/10/17 Lisinopril [Zestril] 2.5 mg PO DAILY 11/16/17 Prednisone 1 tab PO DAILY 11/16/17 Asthma: Yes CVA: No COPD: No DVT: No GI Disorders: Yes (DIVERTICULITIS) HTN: Yes Psychiatric Problems: Yes (depression) - Surgical History Appendectomy: Yes Orthopedic Surgery: Yes (RTKR) - Family Disease History Family Disease History: Heart Disease: Father - Immunization History Immunization Up to Date: Yes - Suicide/Smoking/Psychosocial Hx Smoking History: Never smoked Have you smoked in the past 12 months: No Hx Alcohol Use: No Drug/Substance Use Hx: No Substance Use Type: None Hx Substance Use Treatment: No Review of Systems - Review of Systems Comments:: 01/16/18 09:25 GENERAL/CONSTITUTIONAL: No fever or chills. No weakness. HEAD, EYES, EARS, NOSE AND THROAT: No change in vision. No ear pain or discharge. No sore throat. CARDIOVASCULAR: No chest pain or shortness of breath RESPIRATORY: No cough+ Abdominal pain and nausea and vomiting.No diarrhea or constipation. GENITOURINARY: No dysuria, frequency, or change in urination. MUSCULOSKELETAL: No joint or muscle swelling or pain. No neck or back pain. SKIN: No rash NEUROLOGIC: No headache, vertigo, loss of consciousness, or change in strength/ sensation. ENDOCRINE: No increased thirst. No abnormal weight change HEMATOLOGIC/LYMPHATIC: No anemia, easy bleeding, or history of blood clots. ALLERGIC/IMMUNOLOGIC: No hives or skin allergy. *Physical Exam - Vital Signs Last Vital Signs Temp Pulse Resp BP Pulse Ox 98.0 F 88 18 160/102 99 01/16/18 08:26 01/16/18 08:26 01/16/18 08:26 01/16/18 08:26 01/16/18 08:26 - Physical Exam Comments: 01/16/18 09:26 GENERAL: Awake, alert, and fully oriented, in no acute distress HEAD: No signs of trauma, normocephalic, atraumatic EYES: PERRLA, EOMI, sclera anicteric, conjunctiva clear ENT: Hearing grossly normal, nares patent, oropharynx clear without exudates. Moist mucosa NECK: Normal ROM, supple, no lymphadenopathy, JVD, or masses LUNGS: No distress, speaks full sentences, clear to auscultation bilaterally HEART: Regular rate and rhythm, normal S1 and S2, no murmurs, rubs or gallops, peripheral pulses normal and equal bilaterally. ABDOMEN:+ Epigastric ttp. Soft, normoactive bowel sounds. No guarding, no rebound. No masses. Neg CVA ttp. EXTREMITIES : Normal inspection, Normal range of motion, no edema. No clubbing or cyanosis. SKIN: Warm, Dry, normal turgor, no rashes or lesions noted Procedures - NG Lavage NG Lavage: bilious non-bloody ED Treatment Course - LABORATORY CBC & Chemistry Diagram: 01/16/18 09:34 01/16/18 09:34 Medical Decision Making - Medical Decision Making 01/16/18 09:27 62 yo F with h/o diverticulitis, and asthma who p/w epigastirc pain. BP 160/102 , vitals otheriwse wnl, AF. + Epigastirc ttp. ACS/MO r/o. Suspect gastritis, vs. esophagitis. Will consider biliary pathology, pancreatitis. Low suspicion SBO, AAA, mesenteric ischemia, appendicitis, colitis, diverticulosis/, urinary pathology. Will provide antiemetic, pain control, and IVF hydration. ED Course: CBC, CMP, Lipase, UA, Trop Zofran, Maloox, Carafate, Famotidine, NS RUQ U/S CT AP w/CON 01/16/18 09:47 EKG: NSR with absent SHO, STD. Normal interval duration and axis. 01/16/18 10:25 WBC: 12.9 CMP: Unremarkable Trop: Neg Lipase: Neg 01/16/18 11:55 GB U/S: Unremarkable 01/16/18 11:55 UA: Neg 01/16/18 12:11 GB U/S: Cholelithiasis w/out cholecystitis 01/16/18 15:20 CT AP: Distal small bowel obstruction since 09/09/[address] study. Plan to admit Dr. Emily Helms/ yobani on weekends. 01/16/18 18:55 NGT placed at bedside *DC/Admit/Observation/Transfer Diagnosis at time of Disposition: Epigastric abdominal pain, Nausea, Small bowel obstruction - Discharge Dispostion Condition at time of disposition: Stable - Referrals - Patient Instructions - Post Discharge Activity - Attestations Physician Attestion: 01/16/18 09:31 I attest to the information provided in this note.
[2018-01-16] MEDS ORDERED: SODIUM CHLORIDE 1,000 ML IV STA ×2 (09:27→21:38)
[2018-01-16] MEDS ORDERED: SUCRALFATE 1 GM TABLET (FP) ONE (09:30)
[2018-01-16] MEDS ORDERED: ONDANSETRON 4 MG/2 ML VIAL ONE (09:30)
[2018-01-16] MEDS ORDERED: ACETAMINOPHEN INJECTION 100 ML IVPB ONE (09:30)
[2018-01-16] MEDS ORDERED: MAG HYDROX/AL HYDROX/SIMETH 30 ML UNIT-DOSE CUP ONE (09:30)
[2018-01-16 09:45] LABS: BASO % 0.5 % (0-2.0); EOS % 0.1 % (0-4.5); HEMATOCRIT 44.1 % (32.4-45.2); HEMOGLOBIN 14.8 GM/dL (10.7-15.3); LYMPH % 6.3 % (8-40); MCH 30.3 pg (25.7-33.7); MCHC 33.5 g/dl (32.0-36.0); MEAN CELL VOLUME 90.5 fl (80-96); MEAN PLT VOLUME 9.3 fl (7.5-11.1); MONO % 3.5 % (3.8-10.2); NEUT % 89.6 % (42.8-82.8); PLATELET COUNT 298 K/MM3 (134-434); RBC 4.88 M/mm3 (3.60-5.2); RDW 13.9 % (11.6-15.6); WHITE BLOOD COUNT 12.9 K/mm3 (4.0-10.0)
--- NOTE | 2018-01-16 09:57 | PDOC ---
Attending Attestation - Resident Resident Name: Kenroy Gomez - ED Attending Attestation I have performed the following: I have examined & evaluated the patient, The case was reviewed & discussed with the resident, I agree w/resident's findings & plan, Exceptions are as noted - HPI HPI: 01/16/18 09:56 62-year-old female with history of appendectomy, diverticulitis, asthma presents with upper abdominal pain with nausea vomiting since yesterday 7 PM. Patient ate some shrimp with her partner. Her partner is not ill. States that she's developed this persistent upper abdominal pain, which reports burning in origin. This is her second time episode in the last several months. Denies fevers or chills. Her nausea and vomiting had resolved the patient noted that she was having decreased bowel movements. Came to the ER for further evaluation. - Physicial Exam PE: 01/16/18 09:56 GENERAL: Awake, alert, and fully oriented, in no acute distress HEAD: No signs of trauma EYES: EOMI, sclera anicteric, conjunctiva clear ENT: Auricles normal inspection, hearing grossly normal, nares patent,Moist mucosa NECK: Normal ROM, supple ABDOMEN: Soft, No guarding, no rebound. No masses. TTP epigastric. Pinedo sign negative. Some mild discomfort elicited on left sided abdomen EXTREMITIES: Normal range of motion, no edema. No clubbing or cyanosis. No cords, erythema, or tenderness NEUROLOGICAL: Cranial nerves II through XII grossly intact. Normal speech, normal gait SKIN: Warm, Dry, normal turgor, no rashes or lesions noted. - Medical Decision Making 01/16/18 09:56 Vital Signs Temp Pulse Resp BP Pulse Ox 98.0 F 88 18 160/102 99 01/16/18 08:26 01/16/18 08:26 01/16/18 08:26 01/16/18 08:26 01/16/18 08:26 Differential includes food poisoning, gastritis, pancreatitis, gastritis, diverticulitis, colitis, bowel obstruction. I agree that the patient to be evaluated with blood work and right quadrant ultrasound and abdominal/pelvis CT to rule out these findings. 01/16/18 15:16 CBC, BMP 01/16/18 09:34 01/16/18 09:34 CMP Sodium 137 mmol/L (136-145) 01/16/18 09:34 Potassium 4.4 mmol/L (3.5-5.1) 01/16/18 09:34 Chloride 100 mmol/L (98-107) 01/16/18 09:34 Carbon Dioxide 30 mmol/L (21-32) 01/16/18 09:34 Anion Gap 7 MMOL/L (8-16) L 01/16/18 09:34 BUN 15 mg/dL (7-18) 01/16/18 09:34 Creatinine 0.7 mg/dL (0.55-1.02) 01/16/18 09:34 Creat Clearance w eGFR > 60 (>60) 01/16/18 09:34 Random Glucose 130 mg/dL (74-106) H 01/16/18 09:34 Calcium 9.9 mg/dL (8.5-10.1) 01/16/18 09:34 Total Bilirubin 0.6 mg/dL (0.2-1.0) 01/16/18 09:34 AST 23 U/L (15-37) 01/16/18 09:34 ALT 33 U/L (12-78) 01/16/18 09:34 Alkaline Phosphatase 69 U/L (45-117) 01/16/18 09:34 Creatine Kinase 76 IU/L (26-192) 01/16/18 09:34 Troponin I < 0.02 ng/ml (0.00-0.05) 01/16/18 09:34 Total Protein 8.6 g/dl (6.4-8.2) H 01/16/18 09:34 Albumin 4.1 g/dl (3.4-5.0) 01/16/18 09:34 Lipase 275 U/L (73-393) 01/16/18 09:34 Urine Test Results Urine Color Yellow 01/16/18 10:25 Urine Appearance Clear 01/16/18 10:25 Urine pH 6.0 (5.0-8.0) 01/16/18 10:[address] 1.023 (1.001-1.035) 01/16/18 10:25 Urine Protein 2+ (NEGATIVE) H 01/16/18 10:25 Urine Glucose (UA) Negative (NEGATIVE) 01/16/18 10:25 Urine Ketones 1+ (NEGATIVE) H 01/16/18 10:25 Urine Blood Negative (NEGATIVE) 01/16/18 10:25 Urine Nitrite Negative (NEGATIVE) 01/16/18 10:25 Urine Bilirubin Negative (<2.0 mg/dL) 01/16/18 10:25 Ur Leukocyte Esterase Trace (NEGATIVE) 01/16/18 10:25 Ur Epithelial Cells Rare /HPF (FEW) 01/16/18 10:25 Urine Mucus Rare 01/16/18 10:25 CT scan demonstrates a bowel obstruction. Will keep pt NPO, give D5W NS maintenance IVF, pain medication and admit for small bowel obstruction. Heart Score/ECG Review #1 ECG reviewed & interpreted by me at: 09:50 01/16/18 10:02 NSR 74, no std/jake, normal axis, normal intervals, TWI III, T wave flat avF, V4- V5, TWI V3, QTC 446 msec
[2018-01-16 10:05] LABS: ALBUMIN 4.1 g/dl (3.4-5.0); ANION GAP 7 MMOL/L (8-16); BLOOD UREA NITROGEN 15 mg/dL (7-18); CALCIUM 9.9 mg/dL (8.5-10.1); CHLORIDE 100 mmol/L (98-107); CO2 30 mmol/L (21-32); GLUCOSE,RANDOM 130 mg/dL (74-106); POTASSIUM 4.4 mmol/L (3.5-5.1); SGPT/ALT 33 U/L (12-78); SODIUM 137 mmol/L (136-145)
[2018-01-16 10:10] LABS: ALK PHOS 69 U/L (45-117); BILIRUBIN,TOTAL 0.6 mg/dL (0.2-1.0); CREATININE 0.7 mg/dL (0.55-1.02); SGOT/AST 23 U/L (15-37); TOT PROT 8.6 g/dl (6.4-8.2)
[2018-01-16 10:12] LABS: LIPASE 275 U/L (73-393)
[2018-01-16 11:20] LABS: URINE APPEARANCE CLEAR; URINE BILIRUBIN NEGATIVE (<2.0 mg/dL); URINE COLOR YELLOW; URINE GLUCOSE (UA) NEGATIVE (NEGATIVE); URINE KETONE 1+ (NEGATIVE); URINE LEUK ESTERASE TRACE (NEGATIVE); URINE NITRITE NEGATIVE (NEGATIVE); URINE UROBILINOGEN NEGATIVE mg/dL (0.2-1.0)
[2018-01-16 11:24] LABS: URINE PROTEIN 2+ (NEGATIVE)
[2018-01-16 11:28] LABS: EPI CELLS RARE /HPF (FEW); URINE MUCUS RARE
[2018-01-16] MEDS ORDERED: morphine CARPU-JECT 4 MG/1 ML DISP.SYRIN IVPUSH ONE (15:16)
[2018-01-16] MEDS ORDERED: DEXTROSE 5%-NORMAL SALINE 1,000 ML IV SCH (15:30)
[2018-01-16] MEDS ORDERED: morphine SULFATE 4 MG/ML VIAL ONE (15:41)
[2018-01-16] MEDS: SODIUM CHLORIDE 1,000 ML IV SCH (16:53)
--- NOTE | 2018-01-16 19:02 | HP ---
CHIEF COMPLAINT: Abdominal pain PCP: HISTORY OF PRESENT ILLNESS: 62 year-old female with a PMH significant for HTN, diverticulitis (08/2017), asthma, arthritis, depression, s/p four abdominal surgical interventions ( ovarian cyst, hysterectomy, appendectomy, laparoscopic procedure unspecified). Presents with upper abdominal pain with nausea and vomiting since yesterday 3pm. Patient ate some shrimp and shortly after developed abdominal pain. The pain worsened through the evening and then she started wretching/dry heaving with no fluid production. She had about seven episodes of wretching during the night. At the same time, she had about 6-7 bowel movements, formed brown stool. No diarrhea. This morning the pain became intolerable and she came to the ED. NGT was placed in ED. Patient reports she saw a lot of beige fluid with pieces of things in the fluid. This is not documented in the chart. The tube fell out when she got to the floor and was replaced. CXR to verify placement pending. Patient presently denies pain. She has not had any bowel movements since her arrival. She has not passed gas. Recent Travel: No PAST MEDICAL HISTORY: Hypertension Diverticulitis Asthma Arthritis Depression PAST SURGICAL HISTORY: Ovarian cyst Hysterectomy Appendectomy Abdominal laparoscopic procedure NOS Tonsillectomy Right knee replacement Social History: Smoking: teenager Alcohol: no Drugs: no Family History: Allergies codeine Allergy (Verified 01/16/18 08:28) duloxetine [From Cymbalta] Adverse Reaction (Intermediate, Verified 01/16/18 08: 28) Nausea HOME MEDICATIONS: Home Medications Medication Instructions Recorded Naproxen [Naprosyn -] 500 mg PO BID PRN #12 tablet 11/11/14 Montelukast Na [Singulair -] 10 mg PO HS tablet 09/10/17 Lisinopril [Zestril] 2.5 mg PO DAILY 11/16/17 Prednisone 1 tab PO DAILY 11/16/17 REVIEW OF SYSTEMS CONSTITUTIONAL: Absent: fever, chills, diaphoresis, generalized weakness, malaise, loss of appetite, weight change HEENT: Absent: rhinorrhea, nasal congestion, throat pain, throat swelling, difficulty swallowing, mouth swelling, ear pain, eye pain, visual changes CARDIOVASCULAR: Absent: chest pain, syncope, palpitations, irregular heart rate, lightheadedness , peripheral edema RESPIRATORY: Absent: cough, shortness of breath, dyspnea with exertion, orthopnea, wheezing, stridor, hemoptysis GASTROINTESTINAL: +abdominal pain, nausea, dry heaves Absent: abdominal pain, abdominal distension, nausea, vomiting, diarrhea, constipation, melena, hematochezia GENITOURINARY: Absent: dysuria, frequency, urgency, hesitancy, hematuria, flank pain, genital pain MUSCULOSKELETAL: Absent: myalgia, arthralgia, joint swelling, back pain, neck pain SKIN: Absent: rash, itching, pallor HEMATOLOGIC/IMMUNOLOGIC: Absent: easy bleeding, easy bruising, lymphadenopathy, frequent infections ENDOCRINE: Absent: unexplained weight gain, unexplained weight loss, heat intolerance, cold intolerance NEUROLOGIC: Absent: headache, focal weakness or paresthesias, dizziness, unsteady gait, seizure, mental status changes, bladder or bowel incontinence PSYCHIATRIC: Absent: anxiety, depression, suicidal or homicidal ideation, hallucinations. PHYSICAL EXAMINATION Vital Signs - 24 hr 01/16/18 01/16/18 01/16/18 08:26 13:14 18:22 Temperature 98.0 F 99.1 F 98.8 F Pulse Rate 88 Pulse Rate [ 83 78 Left Apical] Respiratory 18 16 16 Rate Blood Pressure 160/102 Blood Pressure 170/93 139/74 [Left Arm] O2 Sat by Pulse 99 100 98 Oximetry (%) GENERAL: Awake, alert, and fully oriented, in no acute distress. HEAD: Normal with no signs of trauma. EYES: Pupils equal, round and reactive to light, extraocular movements intact, sclera anicteric, conjunctiva clear. No lid lag. THROAT: dry mucous membranes SKIN: dry, poor turgor NECK: Normal range of motion, supple without lymphadenopathy, JVD, or masses. LUNGS: Breath sounds equal, clear to auscultation bilaterally. No wheezes, and no crackles. No accessory muscle use. HEART: Regular rate and rhythm, normal S1 and S2 ABDOMEN: Soft, nontender, not distended, hyperactive bowel sounds above the umbilicus, absent bowel sounds below the umbilicus MUSCULOSKELETAL: Normal range of motion at all joints. No bony deformities or tenderness. No CVA tenderness. UPPER EXTREMITIES: 2+ pulses, warm, well-perfused. No cyanosis. No clubbing. No peripheral edema. LOWER EXTREMITIES: 2+ pulses, warm, well-perfused. No calf tenderness. No peripheral edema. NEUROLOGICAL: Cranial nerves II-XII intact. Normal speech. Laboratory Results - last 24 hr 01/16/18 01/16/18 01/16/18 09:34 09:34 10:25 WBC 12.9 H RBC 4.88 Hgb 14.8 Hct 44.1 MCV 90.5 MCH 30.3 MCHC 33.5 RDW 13.9 Plt Count 298 MPV 9.3 Absolute Neuts (auto) 11.5 H Neutrophils % 89.6 H Lymphocytes % 6.3 L D Monocytes % 3.5 L Eosinophils % 0.1 D Basophils % 0.5 Nucleated RBC % 0 Sodium 137 Potassium 4.4 Chloride 100 Carbon Dioxide 30 Anion Gap 7 L BUN 15 Creatinine 0.7 Creat Clearance w eGFR > 60 Random Glucose 130 H Calcium 9.9 Total Bilirubin 0.6 AST 23 ALT 33 Alkaline Phosphatase 69 Creatine Kinase 76 Troponin I < 0.02 Total Protein 8.6 H Albumin 4.1 Lipase 275 Urine Color Yellow Urine Appearance Clear Urine pH 6.0 Ur Specific [place] 1.023 Urine Protein 2+ H Urine Glucose (UA) Negative Urine Ketones 1+ H Urine Blood Negative Urine Nitrite Negative Urine Bilirubin Negative Urine Urobilinogen Negative Ur Leukocyte Esterase Trace Urine WBC (Auto) 5 Urine RBC (Auto) 1 Ur Epithelial Cells Rare Urine Mucus Rare Imaging 01/16/18 US gallbladder: cholelithiasis without evidence of acute cholecystitis; no definite biliary tract dilatation 01/16/18 CTAP: distal SBO since 09/09/17 with right lower pelvic transition area; small amount of free fluid in cul-de-sac and right lower pelvis; interval resolution of acute sigmoid diverticulitis; 2.3cm gallbladder calculus without evidence of acute cholecystitis, no biliary tract dilitation; 0.7cm pancreatic cysts needs nonemergency MRI/MRCP; subcm pulmonary nodule needs 6 month followup ASSESSMENT/PLAN: 62 year-old female with a PMH significant for HTN, diverticulitis (08/2017), asthma, arthritis, depression, s/p multiple abdominal surgeries. Admitted for SBO. Small bowel obstruction Vomiting --NGT to LWS --NS x 1L bolus, then hourly --monitor K closely --surgery consult Dr. Burger --no antibiotics for now Diverticulosis Diverticulitis, resolved --had episode in August, placed on observation here at [facility] 09/09-09/10, treated with antibiotics --[address] Trevino: 8mm tubular adenoma sigmoid colon; mild diverticulosis throughout colon Hypertension --BP is stable --hold PO lisinopril Asthma --well-controlled --does NOT take prednisone daily; med rec corrected --continue Singulair Arthritis --stable --no NSAIDS Depression --no on medication FEN Fluids: NS @ 125mL/hr Electrolyes: replete as indicated Nutrition: NPO DVT prophylaxis: mechanical only, SCDs Dispo: continues to require inpatient care. Full code. Visit type - Emergency Visit Emergency Visit: Yes ED Registration Date: 01/16/18 Care time: The patient presented to the Emergency Department on the above date and was hospitalized for further evaluation of their emergent condition. - New Patient This patient is new to me today: Yes Date on this admission: 01/16/18 - Critical Care Critical Care patient: No Hospitalist Screening - Colonoscopy Questionnaire Colonoscopy Questionnaire: Colonoscopy Questionnaire - Patient: 50 - 75 years old and never had a screening colonoscopy: No History of colon or rectal polyps, or CA: Yes History of IBD, Crohn's disease or UC: No History of abdominal radiation therapy as a child: No - Relative: 1 with colon or rectal CA, or polyps at age 60 or younger: Unknown Colon or rectal CA diagnosed at age 45 or younger: Unknown Multiple relatives with colon or rectal CA: Unknown (Had colonoscopy 11/16/[address] Trevino) - Outcome: Screening Result: Positive Screen
[2018-01-16] MEDS ORDERED: MONTELUKAST NA 10 MG TABLET PO SCH (22:00)
[2018-01-16] MEDS: LORazepam 2 MG/ML SDV VIAL IVPUSH PRN (22:03)
[2018-01-16] MEDS: ACETAMINOPHEN 1000 MG/100 ML VIAL (NON FORMULARY) IVPB PRN (22:30)
--- NOTE | 2018-01-16 23:02 | CONSULT ---
Consult Consult Specialty:: General Surgery Referred by:: Liz Terrell Reason for Consultation:: SBO - History of Present Illness Chief Complaint: upper abdominal pain, n/v History of Present Illness: 62yo F with HTN, asthma, arthritis, panic attacks, h/o diverticulitis 09/02 s/p colonoscopy 12/02 with a polyp and diverticulosis, s/p appendectomy, ovarian cystectomy, hysterectomy, another laparoscopy, R knee replacement, tonsillectomy , pending R breast biopsy, presented with 1 day of upper abdominal pain associated with multiple episodes of N/V/retching, and chills but no fever. She has h/o constipation (daily but hard stools), but had multiple stools yesterday. In ER, she was afebrile, with wbc 12, urine with 1+ ketones, US showing cholelithiasis but no cholecystitis, and CT showing SBO with transition in R pelvis (no oral contrast was given). She was given IVF and NGT was placed with "a lot" of output in ER per pt, light shearer. The tube came out after arriving on floor and was replaced. She got IV Tylenol for a headache, but reports her pain is better, not there anymore since NG has been in. She got Ativan for anxiety and is sleeping comfortably on my arrival to see her in her room on the floor, but wakes easily. Surgery was asked to assess. - History Source History Provided By: Patient Limitations to Obtaining History: No Limitations - Past Medical History Cardio/Vascular: Yes: HTN Pulmonary: Yes: Asthma Gastrointestinal: Yes: Diverticulitis (09/02), Diverticulosis Reproductive: Yes: Postmenopausal Psych: Yes: Anxiety, Depression, Panic Musculoskeletal: Yes: Osteoarthritis Additional Medical History: pending right breast biopsy next week - Past Surgical History Past Surgical History: Yes: Appendectomy, Colonoscopy (12/02), Cystectomy ( ovarian), Hysterectomy, Joint Replacement (R knee), Tonsillectomy Additional Surgical History: laparoscopy (unknown details) - Alcohol/Substance Use Hx Alcohol Use: Yes (occ/social) History of Substance Use: reports: None - Smoking History Smoking history: Never smoked Have you smoked in the past 12 months: No - Social History ADL: Independent Home Medications - Allergies Allergies/Adverse Reactions: Allergies Allergy/AdvReac Type Severity Reaction Status Date / Time codeine Allergy Verified 01/16/18 08:28 duloxetine [From Cymbalta] AdvReac Intermediate Nausea Verified 01/16/18 08:28 - Home Medications Home Medications: Ambulatory Orders Naproxen [Naprosyn -] 500 mg PO BID PRN #12 tablet 11/11/14 Montelukast Na [Singulair -] 10 mg PO HS tablet 09/10/17 Lisinopril [Zestril] 2.5 mg PO DAILY 11/16/17 Home Medications (free text): takes lisinopril "when I don't forget" Family Disease History - Family Disease History Family History: Unremarkable (noncontributory) Review of Systems - Review of Systems Constitutional: reports: Chills. denies: Fever Eyes: reports: Other (reading glasses). denies: Recent Change in Vision HENT: denies: Difficult Swallowing, Throat Pain Neck: denies: Swollen Glands, Tenderness Cardiovascular: denies: Chest Pain, Palpitations Respiratory: denies: Cough, SOB Gastrointestinal: reports: Abdominal Pain (with hpi), Constipation, Nausea ( with hpi), Vomiting (with hpi). denies: Diarrhea Genitourinary: denies: Burning, Dysuria Breasts: reports: Other (abnormal mammo - pending right biopsy next week) Musculoskeletal: denies: Back Pain, Joint Pain, Muscle Pain Integumentary: denies: Change in Color, Rash Neurological: reports: Headache. denies: Dizziness (currently) Psychiatric: reports: Anxiety, Depression, Panic (stopped taking med, not seeing dr for it now) Physical Exam Vital Signs: Vital Signs Temperature 98.5 F 01/16/18 20:44 Pulse Rate 84 01/16/18 20:44 Respiratory Rate 20 01/16/18 20:51 Blood Pressure 139/77 01/16/18 20:44 O2 Sat by Pulse Oximetry (%) 98 01/16/18 20:51 Constitutional: Yes: No Distress, Calm, Obese Eyes: Yes: Conjunctiva Clear, EOM Intact HENT: Yes: Atraumatic, Normocephalic, Other (NGT in place - adjusted to leave ~ 62 at nares, small amt clear output in canister) Neck: Yes: Supple, Trachea Midline Cardiovascular: Yes: Tachycardia. No: Pulse Irregular Respiratory: Yes: Regular, CTA Bilaterally Gastrointestinal: Yes: Soft, Abdomen, Obese, Hypoactive Bowel Sounds, Other ( well-healed scars). No: Tenderness, Tenderness, Epigastrium ...Rectal Exam: Yes: Deferred Renal/: No: CVA Tenderness - Left, CVA Tenderness - Right Musculoskeletal: No: Joint Stiffness, Joint Swelling Extremities: No: Cool, Cyanosis Edema: No Peripheral Pulses WNL: Yes Integumentary: No: Jaundice, Rash Neurological: Yes: Alert, Oriented Psychiatric: Yes: Alert, Oriented Labs: CBC, BMP 01/16/18 09:34 01/16/18 09:34 CMP Sodium 137 mmol/L (136-145) 01/16/18 09:34 Potassium 4.4 mmol/L (3.5-5.1) 01/16/18 09:34 Chloride 100 mmol/L (98-107) 01/16/18 09:34 Carbon Dioxide 30 mmol/L (21-32) 01/16/18 09:34 Anion Gap 7 MMOL/L (8-16) L 01/16/18 09:34 BUN 15 mg/dL (7-18) 01/16/18 09:34 Creatinine 0.7 mg/dL (0.55-1.02) 01/16/18 09:34 Creat Clearance w eGFR > 60 (>60) 01/16/18 09:34 Random Glucose 130 mg/dL (74-106) H 01/16/18 09:34 Calcium 9.9 mg/dL (8.5-10.1) 01/16/18 09:34 Total Bilirubin 0.6 mg/dL (0.2-1.0) 01/16/18 09:34 AST 23 U/L (15-37) 01/16/18 09:34 ALT 33 U/L (12-78) 01/16/18 09:34 Alkaline Phosphatase 69 U/L (45-117) 01/16/18 09:34 Creatine Kinase 76 IU/L (26-192) 01/16/18 09:34 Troponin I < 0.02 ng/ml (0.00-0.05) 01/16/18 09:34 Total Protein 8.6 g/dl (6.4-8.2) H 01/16/18 09:34 Albumin 4.1 g/dl (3.4-5.0) 01/16/18 09:34 Lipase 275 U/L (73-393) 01/16/18 09:34 Urine Test Results Urine Color Yellow 01/16/18 10:25 Urine Appearance Clear 01/16/18 10:25 Urine pH 6.0 (5.0-8.0) 01/16/18 10:25 Ur Specific [place] 1.023 (1.001-1.035) 01/16/18 10:25 Urine Protein 2+ (NEGATIVE) H 01/16/18 10:25 Urine Glucose (UA) Negative (NEGATIVE) 01/16/18 10:25 Urine Ketones 1+ (NEGATIVE) H 01/16/18 10:25 Urine Blood Negative (NEGATIVE) 01/16/18 10:25 Urine Nitrite Negative (NEGATIVE) 01/16/18 10:25 Urine Bilirubin Negative (<2.0 mg/dL) 01/16/18 10:25 Ur Leukocyte Esterase Trace (NEGATIVE) 01/16/18 10:25 Ur Epithelial Cells Rare /HPF (FEW) 01/16/18 10:25 Urine Mucus Rare 01/16/18 10:25 Imaging - Results Chest X-ray: Image Reviewed (NG in stomach) Cat Scan: Report Reviewed, Image Reviewed (images personally reviewed - dilated , fluid-filled SB loops with transition in R pelvic area, no free fluid or air, cholelithiasis without cholecystitis, no diverticulitis) Ultrasound: Report Reviewed (stones without cholecystitis or ductal dilation, fatty liver), Image Reviewed Problem List - Problems (1) Small bowel obstruction due to adhesions Assessment/Plan: admitted to medicine agree with NPO (complete)/NGT/IVF change IVF in am to maintenance with K+ in it trend labs pain is better since NG placed serial AXR - may need to give contrast via NG to follow through if not clearly opening up in next few days nonnarcotic pain meds prn ok GI/DVT prophylaxis will follow with you discussed with MELON PACKER Xander Code(s): K56.50 - INTESTNL ADHESIONS, UNSP TO PARTIAL VERSUS COMPLETE OBST (2) Nausea and vomiting Assessment/Plan: better since NG placed Code(s): R11.2 - NAUSEA WITH VOMITING, UNSPECIFIED Qualifiers: Vomiting type: unspecified Vomiting Intractability: non-intractable Qualified Code(s): R11.2 - Nausea with vomiting, unspecified (3) Upper abdominal pain Assessment/Plan: resolved after NGT Code(s): R10.10 - UPPER ABDOMINAL PAIN, UNSPECIFIED (4) Asthma Assessment/Plan: nebs prn - hold PO meds Code(s): J45.909 - UNSPECIFIED ASTHMA, UNCOMPLICATED Qualifiers: Asthma severity: mild Asthma persistence: intermittent Asthma complication type: uncomplicated Qualified Code(s): J45.20 - Mild intermittent asthma, uncomplicated (5) HTN (hypertension) Assessment/Plan: IV meds prn - hold PO meds Code(s): I10 - ESSENTIAL (PRIMARY) HYPERTENSION Qualifiers: Hypertension type: essential hypertension Qualified Code(s): I10 - Essential (primary) hypertension
[2018-01-17] MEDS: SODIUM CHLORIDE 1,000 ML IV SCH ×2 (05:55→14:35)
[2018-01-17] MEDS: ACETAMINOPHEN 1000 MG/100 ML VIAL (NON FORMULARY) IVPB PRN ×2 (05:55→21:17)
[2018-01-17 07:55] LABS: BASO % 0.6 % (0-2.0); EOS % 1.8 % (0-4.5); HEMATOCRIT 36.9 % (32.4-45.2); HEMOGLOBIN 12.3 GM/dL (10.7-15.3); LYMPH % 15.5 % (8-40); MCH 30.4 pg (25.7-33.7); MCHC 33.3 g/dl (32.0-36.0); MEAN CELL VOLUME 91.2 fl (80-96); MEAN PLT VOLUME 9.3 fl (7.5-11.1); NEUT % 75.1 % (42.8-82.8); PLATELET COUNT 222 K/MM3 (134-434); RBC 4.04 M/mm3 (3.60-5.2); RDW 13.8 % (11.6-15.6); WHITE BLOOD COUNT 9.5 K/mm3 (4.0-10.0)
[2018-01-17 07:59] LABS: INR 1.14 (0.83-1.09); PROTHROMBIN TIME (PATIENT) 12.9 SEC (9.7-13.0)
[2018-01-17 08:38] LABS: ALBUMIN 3.2 g/dl (3.4-5.0); ANION GAP 8 MMOL/L (8-16); BLOOD UREA NITROGEN 7 mg/dL (7-18); CALCIUM 8.1 mg/dL (8.5-10.1); CHLORIDE 105 mmol/L (98-107); CO2 26 mmol/L (21-32); GLUCOSE,RANDOM 109 mg/dL (74-106); MAGNESIUM 2.2 mg/dL (1.8-2.4); SODIUM 139 mmol/L (136-145)
[2018-01-17 08:43] LABS: ALK PHOS 51 U/L (45-117); BILIRUBIN,TOTAL 0.7 mg/dL (0.2-1.0); CREATININE 0.5 mg/dL (0.55-1.02); SGOT/AST 17 U/L (15-37); SGPT/ALT 23 U/L (12-78); TOT PROT 6.5 g/dl (6.4-8.2)
[2018-01-17] MEDS ORDERED: LISINOPRIL 5 MG TABLET (FP) PO SCH (10:00)
[2018-01-17] MEDS ORDERED: PATIENT'S OWN MEDICATION (NON-FORMULARY) (Lisinopril [Zestril] 2.5 MG) PO SCH (10:00)
[2018-01-17] MEDS ORDERED: predniSONE 10 MG TABLET (UD) PO SCH (10:00)
--- NOTE | 2018-01-17 10:30 | PN ---
Physical Exam: SUBJECTIVE: Patient seen and examined sitting on edge of bed. Observed ambulating in hallways. OBJECTIVE: Vital Signs Period Temp Pulse Resp BP Sys/Swanson Pulse Ox Last 24 Hr 98.1 F-99.1 F 78-91 16-20 139-170/74-93 98-100 GENERAL: Awake, alert, and fully oriented, in no acute distress. THROAT: dry mucous membranes LUNGS: Breath sounds equal, clear to auscultation bilaterally. No wheezes, and no crackles. No accessory muscle use. HEART: Regular rate and rhythm, S1 and S2 ABDOMEN: Soft, nontender, not distended UPPER EXTREMITIES: 2+ pulses, warm, well-perfused. No cyanosis. No clubbing. No peripheral edema. LOWER EXTREMITIES: 2+ pulses, warm, well-perfused. No calf tenderness. No peripheral edema. NEUROLOGICAL: Cranial nerves II-XII intact. Normal speech. Steady gait. Laboratory Results - last 24 hr 01/16/18 01/17/18 01/17/18 10:25 07:15 07:15 WBC 9.5 RBC 4.04 Hgb 12.3 Hct 36.9 D MCV 91.2 MCH 30.4 MCHC 33.3 RDW 13.8 Plt Count 222 D MPV 9.3 Absolute Neuts (auto) 7.1 Neutrophils % 75.1 Lymphocytes % 15.5 D Monocytes % 7.0 D Eosinophils % 1.8 D Basophils % 0.6 Nucleated RBC % 0 PT with INR INR Sodium 139 Potassium 4.0 Chloride 105 Carbon Dioxide 26 Anion Gap 8 BUN 7 Creatinine 0.5 L Creat Clearance w eGFR > 60 Random Glucose 109 H Calcium 8.1 L Magnesium 2.2 Total Bilirubin 0.7 AST 17 ALT 23 Alkaline Phosphatase 51 D Total Protein 6.5 D Albumin 3.2 L Urine Color Yellow Urine Appearance Clear Urine pH 6.0 Ur Specific [place] 1.023 Urine Protein 2+ H Urine Glucose (UA) Negative Urine Ketones 1+ H Urine Blood Negative Urine Nitrite Negative Urine Bilirubin Negative Urine Urobilinogen Negative Ur Leukocyte Esterase Trace Urine WBC (Auto) 5 Urine RBC (Auto) 1 Ur Epithelial Cells Rare Urine Mucus Rare Blood Type Antibody Screen 01/17/18 01/17/18 01/17/18 07:15 07:15 08:45 WBC RBC Hgb Hct MCV MCH MCHC RDW Plt Count MPV Absolute Neuts (auto) Neutrophils % Lymphocytes % Monocytes % Eosinophils % Basophils % Nucleated RBC % PT with INR 12.90 INR 1.14 H Sodium Potassium Chloride Carbon Dioxide Anion Gap BUN Creatinine Creat Clearance w eGFR Random Glucose Calcium Magnesium Total Bilirubin AST ALT Alkaline Phosphatase Total Protein Albumin Urine Color Urine Appearance Urine pH Ur Specific [place] Urine Protein Urine Glucose (UA) Urine Ketones Urine Blood Urine Nitrite Urine Bilirubin Urine Urobilinogen Ur Leukocyte Esterase Urine WBC (Auto) Urine RBC (Auto) Ur Epithelial Cells Urine Mucus Blood Type A POSITIVE A POSITIVE Antibody Screen Negative Active Medications Generic Name Dose Route Start Last Admin Trade Name Freq PRN Reason Stop Dose Admin Acetaminophen 1,000 mg 01/16/18 21:46 01/17/18 05:55 Ofirmev Injection - IVPB 1,000 mg Q6H PRN Administration PAIN LEVEL 1-5 Sodium Chloride 1,000 mls @ 125 mls/hr 01/16/18 16:45 01/17/18 05:55 Normal Saline - IV 125 mls/hr ASDIR KRISTIAN Administration Lorazepam 0.5 mg 01/16/18 21:48 01/16/18 22:03 Ativan Injection - IVPUSH 0.5 mg Q6H PRN Administration ANXIETY Imaging 01/16/18 US gallbladder: cholelithiasis without evidence of acute cholecystitis; no definite biliary tract dilatation 01/16/18 CTAP: distal SBO since 09/09/17 with right lower pelvic transition area; small amount of free fluid in cul-de-sac and right lower pelvis; interval resolution of acute sigmoid diverticulitis; 2.3cm gallbladder calculus without evidence of acute cholecystitis, no biliary tract dilitation; 0.7cm pancreatic cysts needs nonemergency MRI/MRCP; subcm pulmonary nodule needs 6 month followup 01/17/18 FUA: resolving SBO ASSESSMENT/PLAN: 62 year-old female with a PMH significant for HTN, diverticulitis (08/2017), asthma, arthritis, depression, s/p multiple abdominal surgeries. Admitted for SBO. Small bowel obstruction, improving --today's FUA shows resolving SBO, no BM or flatus yet --maintain NGT to LWS --repeat abdominal film in am --surgery following Diverticulosis, stable --had episode of diverticulitis in 08/2017 treated with antibiotics --11/16 colonoscopy: 8mm tubular adenoma sigmoid colon; mild diverticulosis throughout colon Hypertension --BP is elevated --start enalaprit 0.625mg q6h Asthma --well-controlled --does NOT take prednisone daily; med rec corrected --continue Singulair Arthritis --stable --no NSAIDS Depression --no on medication FEN Fluids: NS @ 125mL/hr Electrolyes: replete as indicated Nutrition: NPO DVT prophylaxis: mechanical only, SCDs Dispo: continues to require inpatient care. Full code. Visit type - Emergency Visit Emergency Visit: Yes ED Registration Date: 01/16/18 Care time: The patient presented to the Emergency Department on the above date and was hospitalized for further evaluation of their emergent condition. - New Patient This patient is new to me today: No - Critical Care Critical Care patient: No
--- NOTE | 2018-01-17 15:58 | PN ---
Progress Note, Physician History of Present Illness: Pt with SBO, NPO with NGT and IVF. Seen and examined in room with son at bedside and one on videophone. Pt states no pain, no flatus or BM yet, voiding ok. Ambulating to bathroom, went down for AXR, which shows much less gas in bowel, stool throughout colon, improved from yesterday. NG output about 100ml overnight, only about 200ml clear/green-tinged in canister now. Pt still notes some nausea, but overall feeling better. Also c/o feeling dry in mouth. - Current Medication List Current Medications: Active Medications Acetaminophen (Ofirmev Injection -) 1,000 mg IVPB Q6H PRN PRN Reason: PAIN LEVEL 1-5 Last Admin: 01/17/18 05:55 Dose: 1,000 mg Sodium Chloride (Normal Saline -) 1,000 mls @ 125 mls/hr IV ASDIR KRISTIAN Last Admin: 01/17/18 14:35 Dose: 125 mls/hr Lorazepam (Ativan Injection -) 0.5 mg IVPUSH Q6H PRN PRN Reason: ANXIETY Last Admin: 01/16/18 22:03 Dose: 0.5 mg - Objective Vital Signs: Vital Signs Temperature 98.7 F 01/17/18 15:23 Pulse Rate 83 01/17/18 15:23 Respiratory Rate 20 01/17/18 15:23 Blood Pressure 147/77 01/17/18 15:23 O2 Sat by Pulse Oximetry (%) 98 01/16/18 20:51 Constitutional: Yes: No Distress, Calm, Obese Eyes: Yes: Conjunctiva Clear, EOM Intact HENT: Yes: Atraumatic, Normocephalic, Other (NG in place, sumped ok) Gastrointestinal: Yes: Soft, Abdomen, Obese. No: Distention (no tympany), Tenderness, Vomiting ...Rectal Exam: Yes: Deferred Musculoskeletal: No: Joint Stiffness, Joint Swelling Extremities: No: Cool, Cyanosis Integumentary: No: Jaundice, Rash Neurological: Yes: Alert, Oriented Labs: CBC, BMP 01/17/18 07:15 01/17/18 07:15 INR, PTT INR 1.14 (0.83-1.09) H 01/17/18 07:15 wbc down to normal better hydrated K normal - ....Imaging X-ray: Report Reviewed, Image Reviewed (images personally reviewed - minimal gas in bowel, much less distended loops, appearance of stool throughout colon, NG in stomach - improved from yesterday) Problem List - Problems (1) Small bowel obstruction due to adhesions Assessment/Plan: continue NPO (complete)/NGT/IVF change IVF to maintenance with K+ in it trend labs ok to ambulate in halls with tube clamped temporarily if doing ok later, may clamp tube overnight serial AXR - ordered for am nonnarcotic pain meds prn ok GI/DVT prophylaxis will follow with you Code(s): K56.50 - INTESTNL ADHESIONS, UNSP TO PARTIAL VERSUS COMPLETE OBST (2) Nausea and vomiting Assessment/Plan: improved, still with some nausea if tube gets clamped overnight, would return to suction for nausea or vomiting Code(s): R11.2 - NAUSEA WITH VOMITING, UNSPECIFIED Qualifiers: Vomiting type: unspecified Vomiting Intractability: non-intractable Qualified Code(s): R11.2 - Nausea with vomiting, unspecified (3) Upper abdominal pain Assessment/Plan: resolved Code(s): R10.10 - UPPER ABDOMINAL PAIN, UNSPECIFIED (4) Asthma Assessment/Plan: nebs prn - hold PO meds Code(s): J45.909 - UNSPECIFIED ASTHMA, UNCOMPLICATED Qualifiers: Asthma severity: mild Asthma persistence: intermittent Asthma complication type: uncomplicated Qualified Code(s): J45.20 - Mild intermittent asthma, uncomplicated (5) HTN (hypertension) Assessment/Plan: IV meds prn - hold PO meds Code(s): I10 - ESSENTIAL (PRIMARY) HYPERTENSION Qualifiers: Hypertension type: essential hypertension Qualified Code(s): I10 - Essential (primary) hypertension
[2018-01-17] MEDS: D5-1/2NS+20 MEQ KCL - 20 MEQ/1,000 ML INFUS.BAG IV SCH (17:00)
[2018-01-18] MEDS: D5-1/2NS+20 MEQ KCL - 20 MEQ/1,000 ML INFUS.BAG IV SCH ×2 (02:44→12:12)
[2018-01-18] MEDS: ACETAMINOPHEN 1000 MG/100 ML VIAL (NON FORMULARY) IVPB PRN (02:44)
[2018-01-18 08:17] LABS: BASO % 0.5 % (0-2.0); EOS % 3.7 % (0-4.5); HEMATOCRIT 36.8 % (32.4-45.2); LYMPH % 23.5 % (8-40); MCH 29.8 pg (25.7-33.7); MCHC 32.5 g/dl (32.0-36.0); MEAN CELL VOLUME 91.6 fl (80-96); MEAN PLT VOLUME 9.5 fl (7.5-11.1); MONO % 8.9 % (3.8-10.2); NEUT % 63.4 % (42.8-82.8); PLATELET COUNT 217 K/MM3 (134-434); RBC 4.02 M/mm3 (3.60-5.2); RDW 13.8 % (11.6-15.6); WHITE BLOOD COUNT 7.9 K/mm3 (4.0-10.0)
[2018-01-18 08:37] LABS: ALBUMIN 3.2 g/dl (3.4-5.0); ANION GAP 7 MMOL/L (8-16); BLOOD UREA NITROGEN 6 mg/dL (7-18); CALCIUM 8.8 mg/dL (8.5-10.1); CHLORIDE 105 mmol/L (98-107); CO2 30 mmol/L (21-32); GLUCOSE,RANDOM 120 mg/dL (74-106); MAGNESIUM 2.1 mg/dL (1.8-2.4); POTASSIUM 3.7 mmol/L (3.5-5.1); SODIUM 142 mmol/L (136-145)
[2018-01-18 08:42] LABS: ALK PHOS 50 U/L (45-117); BILIRUBIN,TOTAL 0.6 mg/dL (0.2-1.0); CREATININE 0.5 mg/dL (0.55-1.02); SGOT/AST 19 U/L (15-37); SGPT/ALT 21 U/L (12-78); TOT PROT 6.5 g/dl (6.4-8.2)
[2018-01-18] MEDS: ENALAPRILAT DIHYDRATE 1.25 MG/1 ML VIAL IVPB SCH ×2 (09:03→16:10)
--- NOTE | 2018-01-18 11:33 | PN ---
Physical Exam: SUBJECTIVE: Patient seen and examined. Had BM this am and +flatus. Had some abdominal pain overnight, nothing today. OBJECTIVE: Vital Signs Period Temp Pulse Resp BP Sys/Swanson Pulse Ox Last 24 Hr 79 F-98.7 F 73-89 18-20 138-155/64-86 95-97 GENERAL: Awake, alert, and fully oriented, in no acute distress. NGT in place draining greenish fluid. LUNGS: Breath sounds equal, clear to auscultation bilaterally. HEART: Regular rate and rhythm, S1 and S2 ABDOMEN: Soft, nontender, not distended, +BS x 4 UPPER EXTREMITIES: 2+ pulses, warm, well-perfused. No cyanosis. No clubbing. No peripheral edema. LOWER EXTREMITIES: 2+ pulses, warm, well-perfused. No calf tenderness. No peripheral edema. No calf tenderness. NEUROLOGICAL: Cranial nerves II-XII intact. Normal speech. Steady gait. Laboratory Results - last 24 hr 01/18/18 01/18/18 07:00 07:00 WBC 7.9 RBC 4.02 Hgb 12.0 Hct 36.8 MCV 91.6 MCH 29.8 MCHC 32.5 RDW 13.8 Plt Count 217 MPV 9.5 Absolute Neuts (auto) 5.0 Neutrophils % 63.4 Lymphocytes % 23.5 D Monocytes % 8.9 Eosinophils % 3.7 D Basophils % 0.5 Nucleated RBC % 0 Sodium 142 Potassium 3.7 Chloride 105 Carbon Dioxide 30 Anion Gap 7 L BUN 6 L Creatinine 0.5 L Creat Clearance w eGFR > 60 Random Glucose 120 H Calcium 8.8 Magnesium 2.1 Total Bilirubin 0.6 AST 19 ALT 21 Alkaline Phosphatase 50 Total Protein 6.5 Albumin 3.2 L Active Medications Generic Name Dose Route Start Last Admin Trade Name Freq PRN Reason Stop Dose Admin Acetaminophen 1,000 mg 01/16/18 21:46 01/18/18 02:44 Ofirmev Injection - IVPB 1,000 mg Q6H PRN Administration PAIN LEVEL 1-5 Enalaprilat 0.625 mg 01/18/18 09:00 01/18/18 09:03 Vasotec Injection - IVPB 0.625 mg Q6H-IV KRISTIAN Administration Potassium Chloride/Dextrose/Sod Cl 20 meq in 1,000 mls @ 125 mls/hr 01/17/18 16:15 01/18/18 02:44 D5-1/2ns+20 Meq Kcl - IV 125 mls/hr ASDIR KRISTIAN Administration Lorazepam 0.5 mg 01/16/18 21:48 01/16/18 22:03 Ativan Injection - IVPUSH 0.5 mg Q6H PRN Administration ANXIETY Imaging 01/16/18 US gallbladder: cholelithiasis without evidence of acute cholecystitis; no definite biliary tract dilatation 01/16/18 CTAP: distal SBO since 09/09/17 with right lower pelvic transition area; small amount of free fluid in cul-de-sac and right lower pelvis; interval resolution of acute sigmoid diverticulitis; 2.3cm gallbladder calculus without evidence of acute cholecystitis, no biliary tract dilitation; 0.7cm pancreatic cysts needs nonemergency MRI/MRCP; subcm pulmonary nodule needs 6 month followup 01/17/18 FUA: resolving SBO ASSESSMENT/PLAN: 62 year-old female with a PMH significant for HTN, diverticulitis (08/2017), asthma, arthritis, depression, s/p multiple abdominal surgeries. Admitted for SBO. Small bowel obstruction, improving --+BM +flatus today --NGT put out 400cc's in past 24 hours --01/18 FUA pending --continue NGT to [facility] --surgery following Diverticulosis, stable --had episode of diverticulitis in 08/2017 treated with antibiotics --11/16 colonoscopy: 8mm tubular adenoma sigmoid colon; mild diverticulosis throughout colon Hypertension --BP is elevated --start enalaprit 0.625mg q6h Asthma --well-controlled --does NOT take prednisone daily; med rec corrected --continue Singulair Arthritis --stable --no NSAIDS Depression --no on medication FEN Fluids: D51/2NS+20K@125mL/hr Electrolyes: replete as indicated Nutrition: NPO DVT prophylaxis: mechanical only, SCDs Dispo: continues to require inpatient care. Full code. Visit type - Emergency Visit Emergency Visit: Yes ED Registration Date: 01/16/18 Care time: The patient presented to the Emergency Department on the above date and was hospitalized for further evaluation of their emergent condition. - New Patient This patient is new to me today: No - Critical Care Critical Care patient: No
--- NOTE | 2018-01-18 14:01 | EKG ---
Test Reason : Blood Pressure : / mmHG Vent. Rate : 074 BPM Atrial Rate : 074 BPM P-R Int : 158 ms QRS Dur : 084 ms QT Int : 402 ms P-R-T Axes : 049 -02 -03 degrees QTc Int : 446 ms NORMAL SINUS RHYTHM CANNOT RULE OUT ANTERIOR INFARCT (CITED ON OR BEFORE 19-SEP-2017) ABNORMAL ECG WHEN COMPARED WITH ECG OF 19-SEP-2017 05:28, COMPARED TO EKG NO SIGNIFICANT CHANGE IS FOUND Confirmed by XAVIER ANDINO MD ([id number]) on 01/18/2018 2:01:07 PM Referred By: Confirmed By:XAIVER ANDINO MD
--- NOTE | 2018-01-18 14:41 | PN ---
Progress Note, Physician History of Present Illness: Pt with SBO, NPO with NGT and IVF. Seen and examined in room. Pt states no pain , had large BM this am after AXR, voiding ok. Ambulating and passing gas. AXR shows stool in colon, no dilated, gas-filled loops. NG output more earlier - ~ 400 today, but NG in stomach, tip may be near pylorus on XR. Tube clamped earlier today - no nausea, pt is hungry. - Current Medication List Current Medications: Active Medications Enalaprilat (Vasotec Injection -) 0.625 mg IVPB Q6H-IV KRISTIAN Last Admin: 01/18/18 09:03 Dose: 0.625 mg Potassium Chloride/Dextrose/Sod Cl (D5-1/2ns+20 Meq Kcl -) 20 meq in 1,000 mls @ 125 mls/hr IV ASDIR KRISTIAN Last Admin: 01/18/18 02:44 Dose: 125 mls/hr Lorazepam (Ativan Injection -) 0.5 mg IVPUSH Q6H PRN PRN Reason: ANXIETY Last Admin: 01/16/18 22:03 Dose: 0.5 mg - Objective Vital Signs: Vital Signs Temperature 98.2 F 01/18/18 14:24 Pulse Rate 78 01/18/18 14:24 Respiratory Rate 18 01/18/18 14:24 Blood Pressure 146/74 01/18/18 14:24 O2 Sat by Pulse Oximetry (%) 95 01/18/18 09:00 Constitutional: Yes: No Distress, Calm, Obese Eyes: Yes: Conjunctiva Clear, EOM Intact HENT: Yes: Atraumatic, Normocephalic, Other (NG clamped - removed at bedside) Gastrointestinal: Yes: Normal Bowel Sounds, Soft, Abdomen, Obese. No: Tenderness Extremities: No: Cool, Cyanosis Integumentary: No: Jaundice, Rash Neurological: Yes: Alert, Oriented Labs: CBC, BMP 01/18/18 07:00 01/18/18 07:00 - ....Imaging X-ray: Image Reviewed (images reviewed - NG in stomach, no dilated, gas-filled loops, air and stool in colon, moderate stool burden, overall still improved) Problem List - Problems (1) Small bowel obstruction due to adhesions Assessment/Plan: resolving/resolved NG removed ok for clears for dinner, water now if tolerating, may d/c IVF and advance to regular for breakfast may be able to d/c home after lunch tomorrow if doing well pain meds stopped discussed with EL Terrell Code(s): K56.50 - INTESTNL ADHESIONS, UNSP TO PARTIAL VERSUS COMPLETE OBST (2) Nausea and vomiting Assessment/Plan: resolved Code(s): R11.2 - NAUSEA WITH VOMITING, UNSPECIFIED Qualifiers: Vomiting type: unspecified Vomiting Intractability: non-intractable Qualified Code(s): R11.2 - Nausea with vomiting, unspecified (3) Asthma Assessment/Plan: ok to resume singulair Code(s): J45.909 - UNSPECIFIED ASTHMA, UNCOMPLICATED Qualifiers: Asthma severity: mild Asthma persistence: intermittent Asthma complication type: uncomplicated Qualified Code(s): J45.20 - Mild intermittent asthma, uncomplicated (4) HTN (hypertension) Assessment/Plan: lisinopril reordered Code(s): I10 - ESSENTIAL (PRIMARY) HYPERTENSION Qualifiers: Hypertension type: essential hypertension Qualified Code(s): I10 - Essential (primary) hypertension
--- NOTE | 2018-01-19 08:15 | PN ---
Physical Exam: SUBJECTIVE: Patient seen and examined at the bedside. Sitting up eating breakfast, in no acute distress. Expresses some fear about eating and getting abdominal pain, but so far tolerating breakfast. OBJECTIVE: ivf stopped, monitor for nausea/pain +bowel sounds, abdomen soft, non distended, had 2 BMs yesterday Vital Signs Period Temp Pulse Resp BP Sys/Swanson Pulse Ox Last 24 Hr 98.0 F-98.3 F 73-88 18-20 120-155/71-86 95-95 GENERAL: The patient is awake, alert, and fully oriented, in no acute distress. HEAD: Normal with no signs of trauma. EYES: PERRL, extraocular movements intact, sclera anicteric, conjunctiva clear. No ptosis. ENT: Ears normal, nares patent, oropharynx clear without exudates, moist mucous membranes. NECK: Trachea midline, full range of motion, supple. ABDOMEN: Soft, nontender, nondistended, normoactive bowel sounds, no guarding, no rebound, no hepatosplenomegaly, no masses. EXTREMITIES: 2+ pulses, warm, well-perfused, no edema. NEUROLOGICAL: Normal speech, gait not observed. PSYCH: Normal mood, normal affect. SKIN: Warm, dry, normal turgor, no rashes or lesions noted Laboratory Results - last 24 hr 01/18/18 01/18/18 07:00 07:00 WBC 7.9 RBC 4.02 Hgb 12.0 Hct 36.8 MCV 91.6 MCH 29.8 MCHC 32.5 RDW 13.8 Plt Count 217 MPV 9.5 Absolute Neuts (auto) 5.0 Neutrophils % 63.4 Lymphocytes % 23.5 D Monocytes % 8.9 Eosinophils % 3.7 D Basophils % 0.5 Nucleated RBC % 0 Sodium 142 Potassium 3.7 Chloride 105 Carbon Dioxide 30 Anion Gap 7 L BUN 6 L Creatinine 0.5 L Creat Clearance w eGFR > 60 Random Glucose 120 H Calcium 8.8 Magnesium 2.1 Total Bilirubin 0.6 AST 19 ALT 21 Alkaline Phosphatase 50 Total Protein 6.5 Albumin 3.2 L Active Medications Generic Name Dose Route Start Last Admin Trade Name Freq PRN Reason Stop Dose Admin Potassium Chloride/Dextrose/Sod Cl 20 meq in 1,000 mls @ 125 mls/hr 01/17/18 16:15 01/18/18 12:12 D5-1/2ns+20 Meq Kcl - IV 125 mls/hr ASDIR KRISTIAN Administration Lisinopril 2.5 mg 01/19/18 10:00 Prinivil PO DAILY KRISTIAN Lorazepam 0.5 mg 01/16/18 21:48 01/16/18 22:03 Ativan Injection - IVPUSH 0.5 mg Q6H PRN Administration ANXIETY ASSESSMENT/PLAN: Patient is a 62 year old female with a significant past medical history of hypertension, diverticulitis, asthma, arthritis, depression, s/p multiple abdominal surgeries. She presents to the ED on 01/16/18 for epigastric pain, nausea and was found to have an SBO. GI: Small bowel obstruction, resolved. todays xray shows resolved SBO, patient passing gas, no abdominal pain or tenderness. Tolerated diet without nausea or vomiting. IVF discontinued. At apx 6pm, patient c/o of abdominal discomfort. discussed with surgery, will start on carafate, zantac. continue diet. Card: Hypertension, controlled On Lisinopril 2.5 daily Pulm Asthma, in no exacerbation. on singulair. tolerating room air fen oral intake adequate monitor electrolytes tolerating regular diet Visit type - Emergency Visit Emergency Visit: Yes ED Registration Date: 01/16/18 Care time: The patient presented to the Emergency Department on the above date and was hospitalized for further evaluation of their emergent condition. - New Patient This patient is new to me today: Yes Date on this admission: 01/19/18 - Critical Care Critical Care patient: No - Discharge Referral Referred to [facility] Med P.C.: No
[2018-01-19] MEDS: LISINOPRIL 5 MG TABLET (FP) PO SCH (09:03)
[2018-01-19] MEDS: LORazepam 2 MG/ML SDV VIAL IVPUSH PRN (17:31)
[2018-01-19] MEDS ORDERED: SUCRALFATE 1 GM/10 ML UNIT DOSE CUPS PO ONE (18:48)
[2018-01-19] MEDS ORDERED: ACETAMINOPHEN 325 MG TABLET (FP) PO PRN (18:51)
--- NOTE | 2018-01-19 18:57 | PN ---
Progress Note, Physician History of Present Illness: Pt seen and examined in room. Tolerated breakfast and some lunch (states she did not want the pasta), had 2 soft BMs after breakfast. Primary team was going to discharge, but she now has epigastric/subxiphoid pain present since before dinner, not going away, and she had some Ativan for a panic attack. She uses Naprosyn for pain at home prn, back and "overall" pain, and sometimes aspirin. She states she has been afraid to eat. - Current Medication List Current Medications: Active Medications Potassium Chloride/Dextrose/Sod Cl (D5-1/2ns+20 Meq Kcl -) 20 meq in 1,000 mls @ 125 mls/hr IV ASDIR KRISTIAN Last Admin: 01/18/18 12:12 Dose: 125 mls/hr Lisinopril (Prinivil) 2.5 mg PO DAILY [facility] Last Admin: 01/19/18 09:03 Dose: 2.5 mg Lorazepam (Ativan Injection -) 0.5 mg IVPUSH Q6H PRN PRN Reason: ANXIETY Last Admin: 01/19/18 17:31 Dose: 0.5 mg Sucralfate (Carafate Oral Suspension -) 1 gm PO ONCE ONE Stop: 01/19/18 18:49 - Objective Vital Signs: Vital Signs Temperature 98.9 F 01/19/18 14:07 Pulse Rate 83 01/19/18 14:07 Respiratory Rate 18 01/19/18 10:21 Blood Pressure 138/60 01/19/18 14:07 O2 Sat by Pulse Oximetry (%) 95 01/19/18 10:21 Constitutional: Yes: No Distress, Anxious, Obese Eyes: Yes: Conjunctiva Clear, EOM Intact HENT: Yes: Atraumatic, Normocephalic Gastrointestinal: Yes: Soft, Abdomen, Obese, Tenderness, Epigastrium (minimal to deep palpation only, more subxiphoid than epigastric). No: Distention, Tenderness (no tenderness elsewhere) Extremities: No: Cool, Cyanosis Integumentary: No: Jaundice, Rash Neurological: Yes: Alert, Oriented Psychiatric: Yes: Alert, Other (uncomfortable, anxious) Labs: no new labs Problem List - Problems (1) Small bowel obstruction due to adhesions Assessment/Plan: resolved, NG removed tolerated diet, but worried about eating, now with some subxiphoid pain will give carafate now pt requests hot soup - ok to continue diet as tolerated discussed with [employer]NAGER Sheridan will keep tonight Tylenol prn for pain will add antacid scheduled Code(s): K56.50 - INTESTNL ADHESIONS, UNSP TO PARTIAL VERSUS COMPLETE OBST (2) Nausea and vomiting Assessment/Plan: resolved Code(s): R11.2 - NAUSEA WITH VOMITING, UNSPECIFIED Qualifiers: Qualified Code(s): R11.2 - Nausea with vomiting, unspecified (3) Asthma Assessment/Plan: ok to resume singulair Code(s): J45.909 - UNSPECIFIED ASTHMA, UNCOMPLICATED Qualifiers: Qualified Code(s): J45.20 - Mild intermittent asthma, uncomplicated (4) HTN (hypertension) Assessment/Plan: lisinopril as at home Code(s): I10 - ESSENTIAL (PRIMARY) HYPERTENSION Qualifiers: Qualified Code(s): I10 - Essential (primary) hypertension
[2018-01-19] MEDS ORDERED: PANTOPRAZOLE SODIUM 40 MG VIAL IVPUSH ONE (20:09)
[2018-01-19] MEDS ORDERED: morphine SULFATE 4 MG/ML VIAL IVPUSH PRN (20:10)
[2018-01-19] MEDS ORDERED: ONDANSETRON 4 MG/2 ML VIAL IVPUSH PRN (20:11)
[2018-01-19] MEDS ORDERED: MORPHINE SULFATE 2 MG/ML VIAL IVPUSH PRN (20:16)
[2018-01-19] MEDS: SODIUM CHLORIDE 1,000 ML IV SCH (20:33)
[2018-01-19] MEDS: RANITIDINE HCL 150 MG TABLET (FP) PO SCH (21:14)
[2018-01-19 21:29] LABS: BASO % 0.4 % (0-2.0); EOS % 1.4 % (0-4.5); HEMATOCRIT 40.1 % (32.4-45.2); HEMOGLOBIN 13.4 GM/dL (10.7-15.3); LYMPH % 12.2 % (8-40); MCH 30.2 pg (25.7-33.7); MCHC 33.3 g/dl (32.0-36.0); MEAN CELL VOLUME 90.7 fl (80-96); MEAN PLT VOLUME 9.8 fl (7.5-11.1); MONO % 6.2 % (3.8-10.2); NEUT % 79.8 % (42.8-82.8); PLATELET COUNT 271 K/MM3 (134-434); RBC 4.42 M/mm3 (3.60-5.2); RDW 13.8 % (11.6-15.6); WHITE BLOOD COUNT 11.6 K/mm3 (4.0-10.0)
[2018-01-19 21:49] LABS: ANION GAP 12 MMOL/L (8-16); BILIRUBIN,TOTAL 0.4 mg/dL (0.2-1.0); BLOOD UREA NITROGEN 9 mg/dL (7-18); CALCIUM 9.7 mg/dL (8.5-10.1); CHLORIDE 102 mmol/L (98-107); CO2 26 mmol/L (21-32); CREATININE 0.6 mg/dL (0.55-1.02); GLUCOSE,RANDOM 130 mg/dL (74-106); MAGNESIUM 1.9 mg/dL (1.8-2.4); POTASSIUM 3.7 mmol/L (3.5-5.1); SGOT/AST 23 U/L (15-37); SGPT/ALT 37 U/L (12-78); SODIUM 140 mmol/L (136-145); TOT PROT 8.2 g/dl (6.4-8.2)
[2018-01-19 21:50] LABS: ALK PHOS 68 U/L (45-117)
[2018-01-20] MEDS: SODIUM CHLORIDE 1,000 ML IV SCH (06:40)
[2018-01-20] MEDS: RANITIDINE HCL 150 MG TABLET (FP) PO SCH (09:16)
[2018-01-20] MEDS: LISINOPRIL 5 MG TABLET (FP) PO SCH (09:16)
[2018-01-20 10:20] VITALS: BP 152/85; PULSE 72; TEMP 98
[2018-01-20] MEDS ORDERED: MAGNESIUM CITRATE 300 ML BOTTLE PO ONE (10:29)
[2018-01-20] MEDS ORDERED: BISACODYL 10 MG SUPP.RECT RC ONE (10:29)
--- NOTE | 2018-01-20 10:31 | PN ---
Physical Exam: SUBJECTIVE: Patient seen and examined at the bedside. OBJECTIVE: patient seen at the bedside. feels better today. overnight had nausea and one episode of vomiting. kept npo. abdomen soft, non distended, + bowel sounds. discussed with surgery, given mag citrate. dulcolax. had 4 bms. Will give regular diet now and discharge home today. Vital Signs Period Temp Pulse Resp BP Sys/Wsanson Pulse Ox Last 24 Hr 98.0 F-98.9 F 72-83 16-18 138-152/60-85 95-95 GENERAL: The patient is awake, alert, and fully oriented, in no acute distress. HEAD: Normal with no signs of trauma. EYES: PERRL, extraocular movements intact, sclera anicteric, conjunctiva clear. No ptosis. ENT: Ears normal, nares patent, oropharynx clear without exudates, moist mucous membranes. NECK: Trachea midline, full range of motion, supple. ABDOMEN: Soft, nontender, nondistended, normoactive bowel sounds, no guarding, no rebound, no hepatosplenomegaly, no masses. EXTREMITIES: 2+ pulses, warm, well-perfused, no edema. NEUROLOGICAL: Normal speech, gait not observed. PSYCH: Normal mood, normal affect. SKIN: Warm, dry, normal turgor, no rashes or lesions noted Laboratory Results - last 24 hr 01/19/18 01/19/18 20:50 20:50 WBC 11.6 H RBC 4.42 Hgb 13.4 Hct 40.1 MCV 90.7 MCH 30.2 MCHC 33.3 RDW 13.8 Plt Count 271 D MPV 9.8 Absolute Neuts (auto) 9.2 H Neutrophils % 79.8 D Lymphocytes % 12.2 D Monocytes % 6.2 Eosinophils % 1.4 Basophils % 0.4 Nucleated RBC % 0 Sodium 140 Potassium 3.7 Chloride 102 Carbon Dioxide 26 Anion Gap 12 BUN 9 Creatinine 0.6 Creat Clearance w eGFR > 60 Random Glucose 130 H Calcium 9.7 Magnesium 1.9 Total Bilirubin 0.4 AST 23 ALT 37 Alkaline Phosphatase 68 D Total Protein 8.2 Albumin 4.0 Active Medications Generic Name Dose Route Start Last Admin Trade Name Freq PRN Reason Stop Dose Admin Acetaminophen 650 mg 01/19/18 18:51 Tylenol - PO Q6H PRN PAIN LEVEL 4 - 6 Bisacodyl 10 mg 01/20/18 10:29 Dulcolax Suppository - [place] 01/20/18 10:30 ONCE ONE Sodium Chloride 1,000 mls @ 83 mls/hr 01/19/18 20:15 01/20/18 06:40 Normal Saline - IV 83 mls/hr ASDIR KRISTIAN Administration Lisinopril 2.5 mg 01/19/18 10:00 01/20/18 09:16 Prinivil PO 2.5 mg DAILY KRISTIAN Administration Lorazepam 0.5 mg 01/16/18 21:48 01/19/18 17:31 Ativan Injection - IVPUSH 0.5 mg Q6H PRN Administration ANXIETY Magnesium Citrate 300 ml 01/20/18 10:29 Citroma - PO 01/20/18 10:30 ONCE ONE Morphine Sulfate 0.5 mg 01/19/18 20:16 01/19/18 20:29 Morphine Sulfate IVPUSH 0.5 mg Q4H PRN Administration PAIN LEVEL 7 - 10 Ondansetron HCl 4 mg 01/19/18 20:11 01/19/18 20:25 Zofran Injection IVPUSH 4 mg Q6H PRN Administration NAUSEA AND/OR VOMITING Ranitidine HCl 150 mg 01/19/18 22:00 01/20/18 09:16 Zantac - PO 150 mg BID KRISTIAN Administration ASSESSMENT/PLAN: Patient is a 62 year old female with a significant past medical history of hypertension, diverticulitis, asthma, arthritis, depression, s/p multiple abdominal surgeries. She presents to the ED on 01/16/18 for epigastric pain, nausea and was found to have an SBO. GI: Small bowel obstruction, resolved. Had acute episode of nausea/vomiting and abdominal pain. Repeat abdominal xray negative for acute process. patient passing gas, no abdominal pain or tenderness on exam. Tolerated diet without nausea or vomiting (clears) this morning. regular diet tonight. IVF discontinued. given mag citrate and dulcolax suppository, had 4 bms today. Can leave later today if patient tolerates dinner. Card: Hypertension, controlled On Lisinopril 2.5 daily Pulm Asthma, in no exacerbation. on singulair. tolerating room air fen oral intake adequate monitor electrolytes tolerating diet full code. Visit type - Emergency Visit Emergency Visit: Yes ED Registration Date: 01/16/18 Care time: The patient presented to the Emergency Department on the above date and was hospitalized for further evaluation of their emergent condition. - New Patient This patient is new to me today: No - Critical Care Critical Care patient: No - Discharge Referral Referred to [facility] Med P.C.: No
[2018-01-20 10:42] LABS: BASO % 0.7 % (0-2.0); EOS % 1.3 % (0-4.5); HEMATOCRIT 38.1 % (32.4-45.2); HEMOGLOBIN 12.8 GM/dL (10.7-15.3); LYMPH % 17.3 % (8-40); MCH 30.6 pg (25.7-33.7); MCHC 33.5 g/dl (32.0-36.0); MEAN CELL VOLUME 91.3 fl (80-96); MEAN PLT VOLUME 9.4 fl (7.5-11.1); MONO % 7.8 % (3.8-10.2); NEUT % 72.9 % (42.8-82.8); PLATELET COUNT 264 K/MM3 (134-434); RBC 4.18 M/mm3 (3.60-5.2); WHITE BLOOD COUNT 8.7 K/mm3 (4.0-10.0)
[2018-01-20 10:57] LABS: CHLORIDE 103 mmol/L (98-107); POTASSIUM 3.8 mmol/L (3.5-5.1); SODIUM 138 mmol/L (136-145)
[2018-01-20 11:26] LABS: ALBUMIN 3.7 g/dl (3.4-5.0); ALK PHOS 63 U/L (45-117); ANION GAP 6 MMOL/L (8-16); BILIRUBIN,TOTAL 0.6 mg/dL (0.2-1.0); BLOOD UREA NITROGEN 9 mg/dL (7-18); CALCIUM 9.2 mg/dL (8.5-10.1); CO2 29 mmol/L (21-32); CREATININE 0.6 mg/dL (0.55-1.02); GLUCOSE,RANDOM 105 mg/dL (74-106); MAGNESIUM 1.9 mg/dL (1.8-2.4); SGOT/AST 34 U/L (15-37); SGPT/ALT 44 U/L (12-78); TOT PROT 7.6 g/dl (6.4-8.2)
--- NOTE | 2018-01-20 16:22 | DS ---
Physical Exam: SUBJECTIVE: Patient seen and examined at the bedside. patient seen at the bedside. feels better today. overnight had nausea and one episode of vomiting. kept npo. abdomen soft, non distended, + bowel sounds. discussed with surgery, given mag citrate. dulcolax. had 4 bms. Will give regular diet now and discharge home today. OBJECTIVE: Vital Signs Period Temp Pulse Resp BP Sys/Swanson Pulse Ox Last 24 Hr 98.0 F-98.5 F 72-83 16-18 140-152/71-85 95-95 PHYSICAL EXAM GENERAL: The patient is awake, alert, and fully oriented, in no acute distress. HEAD: Normal with no signs of trauma. EYES: PERRL, extraocular movements intact, sclera anicteric, conjunctiva clear. No ptosis. ENT: Ears normal, nares patent, oropharynx clear without exudates, moist mucous membranes. NECK: Trachea midline, full range of motion, supple. ABDOMEN: Soft, nontender, nondistended, normoactive bowel sounds, no guarding, no rebound, no hepatosplenomegaly, no masses. EXTREMITIES: 2+ pulses, warm, well-perfused, no edema. NEUROLOGICAL: Normal speech, gait not observed. PSYCH: Normal mood, normal affect. SKIN: Warm, dry, normal turgor, no rashes or lesions noted LABS Laboratory Results - last 24 hr 01/19/18 01/19/18 01/20/18 20:50 20:50 10:10 WBC 11.6 H 8.7 RBC 4.42 4.18 Hgb 13.4 12.8 Hct 40.1 38.1 MCV 90.7 91.3 MCH 30.2 30.6 MCHC 33.3 33.5 RDW 13.8 14.0 Plt Count 271 D 264 MPV 9.8 9.4 Absolute Neuts (auto) 9.2 H 6.4 Neutrophils % 79.8 D 72.9 Lymphocytes % 12.2 D 17.3 D Monocytes % 6.2 7.8 Eosinophils % 1.4 1.3 Basophils % 0.4 0.7 Nucleated RBC % 0 0 Sodium 140 Potassium 3.7 Chloride 102 Carbon Dioxide 26 Anion Gap 12 BUN 9 Creatinine 0.6 Creat Clearance w eGFR > 60 Random Glucose 130 H Calcium 9.7 Magnesium 1.9 Total Bilirubin 0.4 AST 23 ALT 37 Alkaline Phosphatase 68 D Total Protein 8.2 Albumin 4.0 01/20/18 10:10 WBC RBC Hgb Hct MCV MCH MCHC RDW Plt Count MPV Absolute Neuts (auto) Neutrophils % Lymphocytes % Monocytes % Eosinophils % Basophils % Nucleated RBC % Sodium 138 Potassium 3.8 Chloride 103 Carbon Dioxide 29 Anion Gap 6 L BUN 9 Creatinine 0.6 Creat Clearance w eGFR > 60 Random Glucose 105 Calcium 9.2 Magnesium 1.9 Total Bilirubin 0.6 AST 34 ALT 44 Alkaline Phosphatase 63 Total Protein 7.6 Albumin 3.7 HOSPITAL COURSE: Date of Admission:01/16/18 Date of Discharge: 01/20/18 ASSESSMENT/PLAN: Patient is a 62 year old female with a significant past medical history of hypertension, diverticulitis, asthma, arthritis, depression, s/p multiple abdominal surgeries. She presents to the ED on 01/16/18 for epigastric pain, nausea and was found to have an SBO. GI: Small bowel obstruction, resolved. Had acute episode of nausea/vomiting and abdominal pain overnight. Repeat abdominal xray negative for acute process. patient passing gas, no abdominal pain or tenderness on exam. Tolerated diet without nausea or vomiting (clears) this morning. regular diet tonight and can be discharged home if tolerates diet. IVF discontinued. given mag citrate and dulcolax suppository, had 4 bms today. Card: Hypertension, controlled On Lisinopril 2.5 daily Pulm Asthma, in no exacerbation. on singulair. tolerating room air discharge home if tolerates dinner. full code. Minutes to complete discharge: 60 Discharge Summary Reason For Visit: EPIGASTRIC PAIN, NAUSEA BOWEL OBSTUCTIO Current Active Problems Epigastric abdominal pain (Acute) Nausea (Acute) Nausea and vomiting (Acute) Small bowel obstruction (Acute) Small bowel obstruction due to adhesions (Acute) Upper abdominal pain (Acute) Condition: Stable - Instructions Diet, Activity, Other Instructions: Please return to the emergency department with any new or worsening symptoms or concerns. Please follow up with your primary care physician within 72 hours. Please follow up with Gastroenterology within one week. Referrals: Leo Romeo MD [Staff Physician] - - Home Medications Comprehensive Discharge Medication List: Ambulatory Orders Naproxen [Naprosyn -] 500 mg PO BID PRN #12 tablet 11/11/14 Montelukast Na [Singulair -] 10 mg PO HS tablet 09/10/17 Lisinopril [Zestril] 2.5 mg PO DAILY 11/16/17 This patient is new to me today: No Emergency Visit: Yes ED Registration Date: 01/16/18 Care time: The patient presented to the Emergency Department on the above date and was hospitalized for further evaluation of their emergent condition. Critical Care patient: No - Discharge Referral Referred to [facility] Med P.C.: No
== END 2018-01-20 17:48 | disposition home or self-care (01) | DRG 247 ==
LOC: JER 08:25 → JERBED 15:22 → J6S 19:25
PROVIDERS: ADMIT Hospitalist; ATTEND Nurse Practitioner Family
DX: K56.609 Unspecified intestinal obstruction, unspecified as to partial versus complete obstruction (principal); K57.90 Diverticulosis of intestine, part unspecified, without perforation or abscess without bleeding; I10 Essential (primary) hypertension; J45.909 Unspecified asthma, uncomplicated; F32.9 Major depressive disorder, single episode, unspecified; M19.90 Unspecified osteoarthritis, unspecified site; R11.2 Nausea with vomiting, unspecified
CPT/HCPCS: 36415; 71045-TC-FY; 74019-TC-FY; 74177-TC; 76705-TC; 80053; 81003; 81015; 82550; 83690; 83735; 84484; 85025; 85610; 86850; 86900; 86901; 87086; 93005; 93010; 99283-25; J0131; J7030

== ENCOUNTER 2018-06-12 02:10 | Emergency (ER) | payer OTHER ==
[2018-06-12 02:45] VITALS: BP 128/79; PULSE 85; TEMP 98.6; BMI 29.8
--- NOTE | 2018-06-12 03:17 | PDOC ---
History of Present Illness - General Chief Complaint: Injury Stated Complaint: FALL Time Seen by Provider: 06/12/18 02:48 History Source: Patient Exam Limitations: No Limitations - History of Present Illness Initial Comments: 06/12/18 13:48 62 yo with a hx of HTN and breast cancer (unknown stage, denies metastasis; finished course of radiation therapy last week) presents to the emergency department with right deltoid pain that has been ongoing for 2 days. Per the patient, she states she fell on her nightstand after tripping over her cat, striking her deltoid against the nightstand. Denies the following antecedent events: dizziness, nausea, chest pain, SOB, palpitations, lightheadedness, and headache. Denies head trauma and LOC. She was evaluated by urgent care and xray of the right shoulder and humerus shows no fracture, dislocation, or disruption of joints and joint space. She continues to have unchanged throbbing pain in her right deltoid that worsens with movement, but denies inability to full range of motion her arm. pain is 10/10 without radiation with no relief with naprosyn. Denies the following: fever, chills, visual changes, nausea, vomiting , chest pain, SOB, abdominal pain, neck pain, dysuria, hematuria, diarrhea, hematochezia, and leg pain/swelling Allergies: Codeine, duloextine Social: Denies tobacco, alcohol, and substance abuse 06/12/18 14:22 Past History - Past Medical History Allergies/Adverse Reactions: Allergies Allergy/AdvReac Type Severity Reaction Status Date / Time codeine Allergy Verified 06/12/18 02:43 duloxetine [From Cymbalta] AdvReac Intermediate Nausea Verified 06/12/18 02:43 Home Medications: Ambulatory Orders Montelukast Na [Singulair -] 10 mg PO HS tablet 09/10/17 Lisinopril [Zestril] 2.5 mg PO DAILY 11/16/17 Ibuprofen 600 mg PO QID PRN #15 tablet 06/12/18 Asthma: Yes CVA: No COPD: No DVT: No GI Disorders: Yes (DIVERTICULITIS) HTN: Yes Psychiatric Problems: Yes (depression) - Surgical History Appendectomy: Yes Orthopedic Surgery: Yes (RTKR) - Family Disease History Family Disease History: Heart Disease: Father - Immunization History Immunization Up to Date: Yes - Suicide/Smoking/Psychosocial Hx Smoking History: Never smoked Have you smoked in the past 12 months: No Information on smoking cessation initiated: No Hx Alcohol Use: No Drug/Substance Use Hx: No Substance Use Type: None Hx Substance Use Treatment: No Review of Systems - Review of Systems Able to Perform ROS?: Yes Is the patient limited Syrian proficient: No Constitutional: No: Chills, Diaphoresis, Fever, Weakness HEENTM: No: Eye Pain, Recent change in vision, Ear Pain, Nose Pain, Throat Pain , Mouth Pain Respiratory: No: Cough, Shortness of Breath, SOB with Exertion, Hemoptysis Cardiac (ROS): No: Chest Pain, Lightheadedness, Palpitations, Syncope, Chest Tightness ABD/GI: No: Constipated, Diarrhea, Nausea, Rectal Bleeding, Vomiting, Tarry Stools : No: Burning, Dysuria, Hematuria, Urgency Musculoskeletal: Yes: Muscle Pain (right deltoid). No: Back Pain, Joint Pain, Neck Pain Integumentary: No: Erythema, Lesions, Lumps, Pruritus, Rash Neurological: No: Headache, Numbness, Tingling, Tremors, Ataxia, Dizziness Psychiatric: No: Change in Appetite Endocrine: No: Unexplained Weight Gain Hematologic/Lymphatic: No: Anemia *Physical Exam - Vital Signs Last Vital Signs Temp Pulse Resp BP Pulse Ox 98.6 F 85 18 128/79 98 06/12/18 02:20 06/12/18 02:20 06/12/18 02:20 06/12/18 02:20 06/12/18 02:20 - Physical Exam General Appearance: Yes: Nourished, Appropriately Dressed. No: Apparent Distress, Intoxicated HEENT: positive: EOMI, ZO, Normal ENT Inspection, Normal Voice, Symmetrical, TMs Normal, Pharynx Normal, Hearing Grossly Normal. negative: Pale Conjunctivae , Scleral Icterus (R), Scleral Icterus (L), Muffled/Hoarse voice, Pharyngeal Erythema, Tonsillar Exudate, Tonsillar Erythema, Nasal Congestion, Rhinorrhea, Sinus Tenderness, Excessive drooling Neck: positive: Trachea midline. negative: Tender, Lymphadenopathy (R), Lymphadenopathy (L), Tender lateral, Tender midline Respiratory/Chest: positive: Lungs Clear, Normal Breath Sounds. negative: Chest Tender, Respiratory Distress, Accessory Muscle Use, Crackles, Rales, Rhonchi, Stridor, Wheezing Cardiovascular: positive: Regular Rhythm, Regular Rate, S1, S2. negative: Systolic Murmur Gastrointestinal/Abdominal: positive: Normal Bowel Sounds, Flat, Soft. negative : Tender Lymphatic: negative: Adenopathy Musculoskeletal: positive: Normal Inspection. negative: CVA Tenderness, Vertebral Tenderness Extremity: positive: Normal Capillary Refill, Normal Inspection, Normal Range of Motion, Swelling (right deltoid has some slight swelling without ecchymosis at the proximal 1/3 of the right humerus. ). negative: Tender Integumentary: positive: Normal Color, Dry, Warm Neurologic: positive: bundle wrapper II-XII NML intact, Fully Oriented, Alert, Normal Mood/ Affect, Normal Response, Motor Strength 5/5. negative: EOM Palsy, Facial Droop , Sensory Deficit Moderate Sedation - Procedure Monitoring Vital Signs: Procedure Monitoring Vital Signs Temperature 98.6 F 06/12/18 02:20 Pulse Rate 85 06/12/18 02:20 Respiratory Rate 18 06/12/18 02:20 Blood Pressure 128/79 06/12/18 02:20 O2 Sat by Pulse Oximetry (%) 98 06/12/18 02:20 Medical Decision Making - Medical Decision Making 62 yo with a hx of HTN and breast cancer presents to the emergency department with right deltoid pain that has been ongoing for 2 days. Initial vitals: Initial Vital Signs Temp Pulse Resp BP Pulse Ox 98.6 F 85 18 128/79 98 06/12/18 02:20 06/12/18 02:20 06/12/18 02:20 06/12/18 02:20 06/12/18 02:20 work up: ddx: humerus fx vs dislocation vs glenohumeral joint disruption vs muscle contusion vs ligament tear of deltoid to deltoid tuberosity of humerus vs lateral third of the clavicle, acromion vs hematoma. Based on physical exam, she had smooth ROM throughout the right shoulder. Activating deltoid muscle produced intense pain when having her abduct at 90 degrees. will order RUE CT to rule out pathological fractures. will use POCUS to assess if tendon disrupt. Interventions: tylenol. POCUS revealed a right larger anaechoic space between the deltoid and the humerus at the proximal insertion of the humeral head compared to the left. No disruption of the cortex noted. No hemorrhage within the muscle of the deltoid. CT showed calcific tendinosis of the supraspinatus insertional fibers. incidental note is made of a 4 mm nodule in the right upper lobe in a background of mild degree. Centrilobular emphysematous changes and probable a few scattered smaller pulmonary nodules. recommend follow up CT chest in 12 months to document and ensure instability The results of the CT were verbally told to the patient and given a copy of the report. I instructed her to follow up with orthopedics that was referred to her for follow up care and management. Spoke of return precautions. Follow up for this thursday. A sling was applied and the patient was able to ambulate out of the department. Pain was controlled and pain free with the sling applied. able to ambulate on her own volition. Dispo: Discharge *DC/Admit/Observation/Transfer Diagnosis at time of Disposition: Arm pain Qualifiers: Laterality: right Qualified Code(s): M79.601 - Pain in right arm - Discharge Dispostion Disposition: HOME Decision to Admit order: No - Prescriptions Prescriptions: Ibuprofen 600 mg PO QID PRN #15 tablet PRN Reason: Pain - Referrals Referrals: Bette Maravilla MD [Primary Care Provider] - Mega Silva DO [Staff Physician] - - Patient Instructions Printed Discharge Instructions: How to Prevent Falls Additional Instructions: you were seen in the emergency department for the evaluation of your pain. you were given percocet and tylenol in the department. Your CT report was given to you. Please follow up with your primary medical doctor about the the nodule in the right upper lobe. Please make sure to do this. please take ibuprofen every 4 -6 hours for pain as directed on label. please take tylenol every 4-6 hours for pain as needed and directed on the label. please see the orthopedic doctor on Thursday the one referred to you. please call them immediately for follow up appointment. please return to the emergency department if you have worsening pain and new concerning symptoms such as decreased sensation, decreased muscle strength, and loss of color in your arm. thank you. - Post Discharge Activity
--- NOTE | 2018-06-12 03:19 | PDOC ---
Attending Attestation - Resident Resident Name: Torito Trujillo - ED Attending Attestation I have performed the following: I have examined & evaluated the patient, The case was reviewed & discussed with the resident, I agree w/resident's findings & plan - HPI HPI: 06/12/18 06:52 Pt comes with humerus pain on the right. She injured her self and XRAYS at the [place] were normal; she comes because the pain continues and she has some swelling at the right deltoid. - Physicial Exam PE: 06/12/18 06:53 Agree with resident exam - Medical Decision Making 06/12/18 04:54 Patient Name: TIFFANY CISSE THIS IS A PRELIMINARY REPORT FROM [facility] DATE OF SERVICE: 2018-06-12 03:53:33 IMAGES: 467 EXAM: Right upper extremity CT W/O CONTR One or more of the following dose reduction techniques were used: automated exposure control, adjustment of the mA and/or kV according to patient size, use of iterative reconstructive technique. Contrast: None HISTORY: Rule out fracture COMPARISON: None. FINDINGS: The osseous structures are intact with no evidence of fracture or dislocation. No evidence of suspicious osseous abnormality. Mild to moderate degree degenerative changes of the acromioclavicular joint. Broad-based subacromial osteophyte results in mild to moderate subacromial outlet narrowing. Minimal degenerative changes of the glenohumeral joint. Calcific tendinosis of the supraspinatus insertional fibers. Incidental note is made of a 4 mm nodule in the right upper lobe in a background of mild degree centrilobular emphysematous changes and probable a few scattered smaller pulmonary nodules. Recommend followup CT chest in 12 months to document and ensure stability.
[2018-06-12] MEDS ORDERED: ACETAMINOPHEN 325 MG TABLET (FP) PO ONE (03:25)
[2018-06-12] MEDS ORDERED: ACETAMINOPHEN 325 MG TABLET (FP) ONE (03:29)
== END 2018-06-12 05:14 | disposition home or self-care (01) ==
LOC: JER 02:10
PROC: BH47ZZZ Ultrasonography of Upper Extremity (ICD-10-PCS; principal; 2018-06-12)
DX: M79.601 Pain in right arm (principal); W01.190A Fall on same level from slipping, tripping and stumbling with subsequent striking against furniture, initial encounter; Y93.89 Activity, other specified; Y92.032 Bedroom in apartment as the place of occurrence of the external cause; I10 Essential (primary) hypertension; J45.909 Unspecified asthma, uncomplicated; F32.9 Major depressive disorder, single episode, unspecified; Z85.3 Personal history of malignant neoplasm of breast
CPT/HCPCS: 73200-TC-RT; 99281-25

== ENCOUNTER 2018-08-25 11:29 | Emergency (ER) | payer OTHER ==
[2018-08-25 11:46] VITALS: BP 143/82; PULSE 83; TEMP 98.3; BMI 26.7
[2018-08-25] MEDS ORDERED: KETOROLAC TROMETHAMINE 60 MG/2 ML VIAL IM ONE (12:35)
[2018-08-25] MEDS ORDERED: KETOROLAC TROMETHAMINE 60 MG/2 ML VIAL ONE (12:39)
--- NOTE | 2018-08-25 13:00 | PDOC ---
History of Present Illness - General Chief Complaint: Pain, Acute Stated Complaint: BACK PAIN Time Seen by Provider: 08/25/18 12:21 History Source: Patient Exam Limitations: Clinical Condition - History of Present Illness Initial Comments: 08/25/18 13:36 Patient with history of chronic back pain present with complaint of 4 day history of worsening lower back pain in the right side with pain radiating to the back of posterior right thigh and legs. Patient reported taking Motrin and naproxen without improvement she reported pain started after getting up suddenly from a sitting position 5 days ago. Patient reported history of sciatica. Denies any recent trauma or injury. Denies urinary or fecal incontinence. Timing/Duration: other (5 days) Past History - Past Medical History Allergies/Adverse Reactions: Allergies Allergy/AdvReac Type Severity Reaction Status Date / Time codeine Allergy Verified 08/25/18 12:21 duloxetine [From Cymbalta] AdvReac Intermediate Nausea Verified 08/25/18 12:21 Home Medications: Ambulatory Orders Lisinopril [Zestril] 2.5 mg PO DAILY 11/16/17 Ketorolac Tromethamine [Toradol -] 10 mg PO TID PRN #21 tablet 08/25/18 Lidocaine 5% Patch [Lidoderm -] 1 patch TP DAILY #30 patch 08/25/18 Methocarbamol [Robaxin -] 750 mg PO Q8H PRN #20 tablet 08/25/18 Asthma: Yes CVA: No COPD: No DVT: No GI Disorders: Yes (DIVERTICULITIS) HTN: Yes Psychiatric Problems: Yes (depression) - Surgical History Appendectomy: Yes Orthopedic Surgery: Yes (RTKR) - Family Disease History Family Disease History: Heart Disease: Father - Immunization History Immunization Up to Date: Yes - Suicide/Smoking/Psychosocial Hx Smoking History: Never smoked Have you smoked in the past 12 months: No Information on smoking cessation initiated: No Hx Alcohol Use: No Drug/Substance Use Hx: No Substance Use Type: None Hx Substance Use Treatment: No Review of Systems - Review of Systems Able to Perform ROS?: Yes Is the patient limited Filipino proficient: No Constitutional: No: Weakness HEENTM: No: Symptoms Reported Respiratory: No: Symptoms reported ABD/GI: No: Symptoms Reported, Nausea, Vomiting : No: Burning, Discharge, Frequency, Flank Pain Musculoskeletal: Yes: See HPI, Back Pain (right lower back), Muscle Pain (right lower back). No: Muscle Weakness Neurological: Yes: Tingling. No: Numbness, Paresthesia All Other Systems: Reviewed and Negative *Physical Exam - Vital Signs Last Vital Signs Temp Pulse Resp BP Pulse Ox 98.3 F 83 18 143/82 99 08/25/18 11:42 08/25/18 11:42 08/25/18 11:42 08/25/18 11:42 08/25/18 11:42 - Physical Exam Comments: 08/25/18 13:38 GENERAL: Well developed, well nourished. Awake and alert in mild acute distress. CARDIOVASCULAR: Regular rate and rhythm. No murmurs, rubs, or gallops. PULMONARY: No evidence of respiratory distress. Lungs clear to auscultation bilaterally. No wheezing, rales or rhonchi. ABDOMINAL: Soft. Non-tender. Non-distended. No rebound or guarding. No organomegaly. Normoactive bowel sounds MUSCULOSKELETAL : Moderate tenderness over posterior paravertebral muscle of lumbar spine of the right side. Pain worse with external rotation of the hip to the left. No bony deformities . No CVA tenderness EXTREMITIES: No cyanosis. No clubbing. No edema. No calf tenderness. SKIN: Warm and dry. Normal capillary refill. NEUROLOGICAL: Alert, awake, appropriate. No motor deficits in the lower extremities. Gait is normal without ataxia. PSYCHIATRIC: Cooperative. Good eye contact. Appropriate mood and affect. General Appearance: Yes: Nourished, Appropriately Dressed, Moderate Distress ED Treatment Course - RADIOLOGY Radiology Studies Ordered: Category Date Time Status SPINE-LUMBAR SACRAL [RAD] Stat Radiology 08/25/18 12:34 Ordered - Medications Given in the ED: ED Medications Discontinued Medications Generic Name Dose Route Start Last Admin Trade Name Freq PRN Reason Stop Dose Admin Ketorolac Tromethamine 60 mg 08/25/18 12:35 08/25/18 12:42 Toradol Injection - IM 08/25/18 12:36 60 mg ONCE ONE Administration Medical Decision Making - Medical Decision Making 08/25/18 13:39 Patient with history of sciatica present with complaint of worsening right lower back pain radiating to the back of right posterior thigh and leg. Exam significant for moderate tenderness over right paravertebral muscle of lumbar spine is worse with external rotation of the hip to the left. X-ray of lumbosacral shows straightening of the lumbar spine consistent with spine spasm. Toradol 30 mg IM given for pain. Cyclobenzaprine 10 mg by mouth given for muscle spasm .Patient is stable for discharge on by mouth Toradol and Robaxin with orthopedics spine follow-up. *DC/Admit/Observation/Transfer Diagnosis at time of Disposition: Lumbago with sciatica, right side Qualifiers: Chronicity: chronic Back pain laterality: right Qualified Code(s): M54.41 - Lumbago with sciatica, right side - Discharge Dispostion Disposition: HOME Condition at time of disposition: Stable Decision to Admit order: No - Prescriptions Prescriptions: Ketorolac Tromethamine [Toradol -] 10 mg PO TID PRN #21 tablet PRN Reason: Back Pain Lidocaine 5% Patch [Lidoderm -] 1 patch TP DAILY #30 patch Methocarbamol [Robaxin -] 750 mg PO Q8H PRN #20 tablet PRN Reason: Back Pain - Referrals Referrals: Amaury Alonso MD [Staff Physician] - - Patient Instructions Printed Discharge Instructions: DI for Back Spasm Additional Instructions: Your x-ray shows back spasm. Take prescribed medication as prescribed as needed for pain. Follow-up referred to orthopedics if no improvement in 4 days apply heat to lower back 2-3 times a day for 5-10 minutes as needed for back pain - Post Discharge Activity
[2018-08-25] MEDS ORDERED: CYCLOBENZAPRINE HCL 10 MG TABLET (FP) PO ONE (13:20)
[2018-08-25] MEDS ORDERED: CYCLOBENZAPRINE HCL 10 MG TABLET (FP) ONE (13:28)
== END 2018-08-25 13:29 | disposition home or self-care (01) ==
LOC: JERFT 11:29
PROC: 3E0233Z Introduction of Anti-inflammatory into Muscle, Percutaneous Approach (ICD-10-PCS; principal; 2018-08-25)
DX: M54.41 Lumbago with sciatica, right side (principal); F32.9 Major depressive disorder, single episode, unspecified; I10 Essential (primary) hypertension; J45.909 Unspecified asthma, uncomplicated
CPT/HCPCS: 72100-TC-FY; 99281-25

== ENCOUNTER 2018-12-11 22:20 | Emergency (ER) | payer OTHER | END 2018-12-11 23:09 | disposition home or self-care (01) | LOC: JERFT 22:20 ==

== ENCOUNTER 2019-12-08 12:59 | Emergency (ER) | payer OTHER ==
--- NOTE | 2019-12-08 13:18 | PDOC ---
Rapid Medical Evaluation Time Seen by Provider: 12/08/19 13:09 Medical Evaluation: Allergies Allergy/AdvReac Type Severity Reaction Status Date / Time codeine Allergy Verified 12/11/18 22:42 12/08/19 13:15 64 year old female HTN asthma breast cancer (lumpectomy 2018 radiation) Complaing of breast mass/lump x 1 week in Right outer quadrant. No discharge, no erythema, no pain. Last mammo 02/03 PE Deferred Plan: Pt to precede to ED for further treatment and care
[2019-12-08 13:21] VITALS: BP 174/76; PULSE 77; TEMP 98.5; BMI 27.4
[2019-12-08 15:27] LABS: EOS % 2.4 % (0-4.5); HEMATOCRIT 42.3 % (32.4-45.2); LYMPH % 14.7 % (8-40); MCH 30.6 pg (25.7-33.7); MCHC 33.1 g/dl (32.0-36.0); MEAN CELL VOLUME 92.4 fl (80-96); MEAN PLT VOLUME 9.2 fl (7.5-11.1); MONO % 6.5 % (3.8-10.2); NEUT % 75.4 % (42.8-82.8); PLATELET COUNT 253 K/MM3 (134-434); RBC 4.58 M/mm3 (3.60-5.2); RDW 14.2 % (11.6-15.6); WHITE BLOOD COUNT 7.1 K/mm3 (4.0-10.0)
[2019-12-08 15:57] LABS: ALBUMIN 4.2 g/dl (3.4-5.0); BILIRUBIN,TOTAL 0.6 mg/dL (0.2-1); BLOOD UREA NITROGEN 10.5 mg/dL (7-18); CALCIUM 9.9 mg/dL (8.5-10.1); CREATININE 0.6 mg/dL (0.55-1.3); POTASSIUM 4.7 mmol/L (3.5-5.1); TOT PROT 8.2 g/dl (6.4-8.2)
--- NOTE | 2019-12-08 17:45 | PDOC ---
History of Present Illness - General Chief Complaint: Pain Stated Complaint: BREAST PAIN Time Seen by Provider: 12/08/19 13:09 History Source: Patient Exam Limitations: No Limitations Past History - Travel History Traveled outside of the country in the last 30 days: No Close contact w/someone who was outside of country & ill: No - Medical History Allergies/Adverse Reactions: Allergies Allergy/AdvReac Type Severity Reaction Status Date / Time codeine Allergy Verified 12/08/19 13:15 Home Medications: Ambulatory Orders Lisinopril [Zestril] 2.5 mg PO DAILY 11/16/17 Lidocaine 5% Patch [Lidoderm -] 1 patch TP DAILY #30 patch 08/25/18 Ketorolac Tromethamine [Toradol -] 10 mg PO TID PRN #21 tablet 12/11/18 Methocarbamol [Robaxin -] 750 mg PO Q8H PRN #20 tablet 12/11/18 Asthma: Yes Cancer: Yes (breast cancer) CVA: No COPD: No DVT: No GI Disorders: Yes (DIVERTICULITIS) HTN: Yes Psychiatric Problems: Yes (depression) - Surgical History Appendectomy: Yes Orthopedic Surgery: Yes (RTKR) - Immunization History Immunization Up to Date: Yes - Psycho-Social/Smoking History Smoking History: Never smoked Have you smoked in the past 12 months: No - Substance Abuse Hx (Audit-C & DAST Scrn) How often the patient has a drink containing alcohol: Never Score: In Men: 4 or > Positive; In Women: 3 or > Positive: 0 Screen Result (Pos requires Nsg. Audit-10AR): Negative In the last yr the pt used illegal drug/Rx for NonMed reason: No Score: Yes response is considered Positive: 0 Screen Result (Positive result requires Nsg. DAST-10): Negative Review of Systems - Review of Systems Able to Perform ROS?: Yes Comments:: 12/08/19 18:55 CONSTITUTIONAL: Absent: fever, chills, diaphoresis, generalized weakness, malaise, loss of appetite HEENT: Absent: rhinorrhea, nasal congestion, throat pain, throat swelling, difficulty swallowing, mouth swelling, ear pain, eye pain, visual Changes CARDIOVASCULAR: Absent: chest pain, loss of consciousness, palpitations, irregular heart rate, peripheral edema RESPIRATORY: Absent: cough, shortness of breath, dyspnea with exertion, orthopnea, wheezing, stridor, hemoptysis GASTROINTESTINAL: Absent: abdominal pain, abdominal distension, nausea, vomiting, diarrhea, constipation, melena, hematochezia GENITOURINARY: Absent: dysuria, frequency, urgency, hesitancy, hematuria, flank pain, genital pain MUSCULOSKELETAL: Absent: myalgia, arthralgia, joint swelling SKIN: Present: Right breast pain absent: rash, itching, pallor HEMATOLOGIC/IMMUNOLOGIC: Absent: easy bleeding, easy bruising, lymphadenopathy, frequent infections ENDOCRINE: Absent: unexplained weight gain, unexplained weight loss, heat intolerance, cold intolerance NEUROLOGIC: Absent: headache, focal weakness or paresthesias, dizziness, unsteady gait, seizure, mental status changes, bladder or bowel incontinence PSYCHIATRIC: Absent: anxiety, depression, suicidal or homicidal ideation, hallucinations. Is the patient limited Turkish proficient: No *Physical Exam - Vital Signs Last Vital Signs Temp Pulse Resp BP Pulse Ox 98.5 F 77 15 174/76 H 100 12/08/19 13:16 12/08/19 13:16 12/08/19 13:16 12/08/19 13:16 12/08/19 13:16 - Physical Exam 12/08/19 20:55 GENERAL: Well developed, well nourished. Awake and alert. No acute distress. HEENT: Normocephalic, atraumatic. PERRLA, EOMI. No conjunctival pallor. Sclera are non- icteric. Moist mucous membranes. Oropharynx is clear. NECK: Supple. Full ROM. BREAST: Rubbery nonmobile lump felt at the 9 o'clock position of the right breast 2 cm from the nipple. No rashes or puckering noted. No discharge from the nipple noted. CARDIOVASCULAR: Regular rate and rhythm. No murmurs, rubs, or gallops. Distal pulses are 2+ and symmetric. PULMONARY: No evidence of respiratory distress. Lungs clear to auscultation bilaterally. No wheezing, rales or rhonchi. MUSCULOSKELETAL Normal range of motion at all joints. No bony deformities or tenderness. No CVA tenderness. EXTREMITIES: No cyanosis. No clubbing. No edema. No calf tenderness. SKIN: Warm and dry. Normal capillary refill. No rashes. No jaundice. NEUROLOGICAL: Alert, awake, appropriate. Cranial nerves 2-12 intact. No deficits to light touch and temperature in face, upper extremities and lower extremities. No motor deficits in the in face, upper extremities and lower extremities. Normoreflexic in the upper and lower extremities. Normal speech. Toes are down-going bilaterally. Gait is normal without ataxia. PSYCHIATRIC: Cooperative. Good eye contact. Appropriate mood and affect. ED Treatment Course - LABORATORY CBC & Chemistry Diagram: 12/08/19 15:01 12/08/19 15:01 - ADDITIONAL ORDERS Additional order review: Laboratory Results 12/08/19 15:01 Sodium 138 Potassium 4.7 Chloride 103 Carbon Dioxide 28 Anion Gap 7 L BUN 10.5 Creatinine 0.6 Est GFR (CKD-EPI)AfAm 111.64 Est GFR (CKD-EPI)NonAf 96.33 Random Glucose 108 H Calcium 9.9 Total Bilirubin 0.6 AST 26 ALT 28 Alkaline Phosphatase 73 Total Protein 8.2 Albumin 4.2 12/08/19 15:01 RBC 4.58 MCV 92.4 MCHC 33.1 RDW 14.2 MPV 9.2 Neutrophils % 75.4 Lymphocytes % 14.7 Monocytes % 6.5 Eosinophils % 2.4 D Basophils % 1.0 - RADIOLOGY Radiology Studies Ordered: Category Date Time Status BREAST US RIGHT LIMITED [US] Stat Ultrasound 12/08/19 14:22 Taken Medical Decision Making - Medical Decision Making 12/08/19 19:56 The patient is a 64-year-old female with past medical history of breast CA, lumpectomy on the right, presents to the ER for a new right breast lump. She states she noticed it approximately 1 week ago. She states that it is painful and she is concerned it could be a recurrence of her cancer. Denies difficulty breathing, lightheadedness, weakness, chest pain, discharge from the site, discharge from the nipple. A/P: Breast lump On exam patient has a rubbery nonmobile lump to the right breast at the 9 o'clock position. Basic labs ordered, unremarkable. Breast ultrasound ordered to rule out abscess. Ultrasound reveals no evidence of cancer, cysts or abscess in the area of interest. We will discharge home to have the patient follow-up with her breast surgeon for further management. Strict return precautions given. I discussed the physical exam findings, ancillary test results and final diagnoses with the patient. I answered all of the patient's questions. The patient was satisfied with the care received and felt comfortable with the discharge plan and treatment plan. The Patient agrees to follow up with the primary care physician/specialist within 24-72 hours. Return precautions were given. Discharge - Discharge Information Problems reviewed: Yes Clinical Impression/Diagnosis: Breast pain, right Condition: Stable Disposition: HOME - Admission No - Follow up/Referral - Patient Discharge Instructions Patient Printed Discharge Instructions: DI for Breast Pain (Mastalgia) Additional Instructions: You were seen for the lump in your breast today. Your ultrasound did not show any abnormalities including no cancer or abscess. Please follow-up with your breast surgeon as soon as possible for reevaluation. Return to the ER for worsening pain, fever or if you have any changes in your symptoms. - Post Discharge Activity
== END 2019-12-08 18:47 | disposition home or self-care (01) ==
LOC: JER 12:59
DX: N64.4 Mastodynia (principal)
CPT/HCPCS: 36415; 76642-TC-RT; 80053; 85025; 99284-25

== ENCOUNTER 2020-04-05 00:08 | Inpatient (IN) | payer OTHER ==
[2020-04-05] MEDS ORDERED: ONDANSETRON 4 MG/2 ML VIAL IVPUSH ONE (01:21)
[2020-04-05] MEDS ORDERED: LACTATED RINGERS SOLUTION 1000 ML INFUS.BAG IV ONE (01:25)
[2020-04-05] MEDS ORDERED: ACETAMINOPHEN 1000 MG/100 ML VIAL (NON FORMULARY) IVPB ONE (01:25)
[2020-04-05] MEDS ORDERED: ACETAMINOPHEN INJECTION 100 ML IVPB ONE ×2 (02:04→19:15)
[2020-04-05 02:27] LABS: BASO % 0.6 % (0-2.0); EOS % 1.3 % (0-4.5); HEMATOCRIT 41.5 % (32.4-45.2); HEMOGLOBIN 13.6 GM/dL (10.7-15.3); MCH 30.3 pg (25.7-33.7); MCHC 32.8 g/dl (32.0-36.0); MEAN CELL VOLUME 92.4 fl (80-96); MEAN PLT VOLUME 9.7 fl (7.5-11.1); MONO % 5.9 % (3.8-10.2); NEUT % 85.2 % (42.8-82.8); PLATELET COUNT 227 K/MM3 (134-434); RBC 4.49 M/mm3 (3.60-5.2); WHITE BLOOD COUNT 8.8 K/mm3 (4.0-10.0)
[2020-04-05 02:41] LABS: CHLORIDE 100 mmol/L (98-107); POTASSIUM 3.5 mmol/L (3.5-5.1); SODIUM 133 mmol/L (136-145)
[2020-04-05 02:43] LABS: ALBUMIN 4.2 g/dl (3.4-5.0); ANION GAP 6 MMOL/L (8-16); BLOOD UREA NITROGEN 10.8 mg/dL (7-18); CALCIUM 9.7 mg/dL (8.5-10.1); CO2 27 mmol/L (21-32); GLUCOSE,RANDOM 148 mg/dL (74-106); LIPASE 128 U/L (73-393)
[2020-04-05 02:45] LABS: CREATININE 0.7 mg/dL (0.55-1.3); SGOT/AST 20 U/L (15-37); SGPT/ALT 27 U/L (13-61)
[2020-04-05 02:48] LABS: BILIRUBIN,TOTAL 0.4 mg/dL (0.2-1); TOT PROT 8.3 g/dl (6.4-8.2)
[2020-04-05 02:49] LABS: ALK PHOS 78 U/L (45-117)
[2020-04-05 03:48] LABS: PH,URINE 7.5 (5.0-8.0); URINE APPEARANCE CLEAR; URINE BILIRUBIN NEGATIVE (NEGATIVE); URINE COLOR YELLOW; URINE GLUCOSE (UA) NEGATIVE (NEGATIVE); URINE KETONE NEGATIVE (NEGATIVE); URINE LEUK ESTERASE NEGATIVE (NEGATIVE); URINE NITRITE NEGATIVE (NEGATIVE); URINE PROTEIN NEGATIVE (NEGATIVE); URINE UROBILINOGEN 0.2 mg/dL (0.2-1.0)
[2020-04-05] MEDS: SODIUM CHLORIDE 1,000 ML IV SCH ×2 (07:38→23:06)
[2020-04-05 09:55] LABS: INR 1.11 (0.83-1.09); PROTHROMBIN TIME (PATIENT) 13.6 SEC (9.7-13.0)
[2020-04-05 09:58] LABS: ACTIVATED PTT 31.2 SECONDS (25.2-36.5)
[2020-04-05] MEDS ORDERED: LISINOPRIL 5 MG TABLET ONE (10:08)
[2020-04-05] MEDS: LISINOPRIL 5 MG TABLET PO SCH (10:13)
[2020-04-05] MEDS ORDERED: PANTOPRAZOLE SODIUM 40 MG VIAL ONE (14:20)
[2020-04-05] MEDS: PANTOPRAZOLE SODIUM 40 MG VIAL IVPUSH SCH (14:25)
[2020-04-05] MEDS: ACETAMINOPHEN 1000 MG/100 ML VIAL (NON FORMULARY) IVPB PRN (19:19)
[2020-04-06 01:06] VITALS: BMI 25.5
[2020-04-06] MEDS: ACETAMINOPHEN 1000 MG/100 ML VIAL (NON FORMULARY) IVPB PRN (05:58)
[2020-04-06 06:38] LABS: HEMOGLOBIN 12.3 GM/dL (10.7-15.3); MCH 29.9 pg (25.7-33.7); MCHC 32.5 g/dl (32.0-36.0); MEAN CELL VOLUME 91.9 fl (80-96); MEAN PLT VOLUME 9.3 fl (7.5-11.1); PLATELET COUNT 203 K/MM3 (134-434); RBC 4.13 M/mm3 (3.60-5.2); RDW 14.5 % (11.6-15.6); WHITE BLOOD COUNT 4.8 K/mm3 (4.0-10.0)
[2020-04-06 06:46] LABS: INR 1.15 (0.83-1.09); PROTHROMBIN TIME (PATIENT) 14.1 SEC (9.7-13.0)
[2020-04-06 06:48] LABS: ACTIVATED PTT 30.4 SECONDS (25.2-36.5)
[2020-04-06 07:02] LABS: POTASSIUM 3.9 mmol/L (3.5-5.1)
[2020-04-06 07:08] LABS: ALBUMIN 3.3 g/dl (3.4-5.0); BLOOD UREA NITROGEN 8.2 mg/dL (7-18); CALCIUM 9.2 mg/dL (8.5-10.1); MAGNESIUM 1.9 mg/dL (1.8-2.4)
[2020-04-06 07:10] LABS: CREATININE 0.5 mg/dL (0.55-1.3)
[2020-04-06 07:13] LABS: BILIRUBIN,TOTAL 0.5 mg/dL (0.2-1); TOT PROT 6.5 g/dl (6.4-8.2)
[2020-04-06] MEDS: PANTOPRAZOLE SODIUM 40 MG VIAL IVPUSH SCH (09:50)
[2020-04-06] MEDS: LISINOPRIL 5 MG TABLET PO SCH (09:50)
[2020-04-06] MEDS: SODIUM CHLORIDE 1,000 ML IV SCH ×2 (09:50→19:08)
[2020-04-06] MEDS ORDERED: ONDANSETRON 4 MG/2 ML VIAL ONE ×3 (15:50→18:05)
[2020-04-06] MEDS ORDERED: DEXAMETHASONE SOD PHOSPHATE 4 MG/1 ML VIAL ONE (15:50)
[2020-04-06] MEDS ORDERED: PROPOFOL 20 ML ONE (15:50)
[2020-04-06] MEDS ORDERED: MIDAZOLAM HCL 2 MG/2 ML SINGLE DOSE VIAL ONE (15:50)
[2020-04-06] MEDS ORDERED: LIDOCAINE HCL/PF 2% SDV 5ML VIAL ONE (15:50)
[2020-04-06] MEDS ORDERED: fentaNYL CITRATE 250 MCG/5 ML VIAL ONE (15:50)
[2020-04-06] MEDS ORDERED: ROCURONIUM BROMIDE 50 MG/5 ML SYRINGE ONE (15:50)
[2020-04-06] MEDS ORDERED: ONDANSETRON 4 MG/2 ML VIAL IVPUSH PRN ×2 (16:27→18:41)
[2020-04-06] MEDS ORDERED: LACTATED RINGERS SOLUTION 1,000 ML IV SCH ×2 (16:30→18:41)
[2020-04-06] MEDS ORDERED: ceFAZolin SODIUM 1 GM VIAL IVPB ONE (16:35)
[2020-04-06] MEDS ORDERED: EPHEDRINE SULFATE/0.9% NACL/PF 50 MG/10 ML SYRINGE NR ONE (16:49)
[2020-04-06] MEDS ORDERED: BUPIVACAINE HCL/PF 0.5% (5 MG/ML) 30 ML VIAL IJ ONE (17:38)
[2020-04-06] MEDS ORDERED: GLYCOPYRROLATE 0.2 MG/1 ML VIAL ONE (17:43)
[2020-04-06] MEDS ORDERED: NEOSTIGMINE METHYLSULFATE 0.5 MG/1 ML - 10 ML MDV ONE (17:43)
[2020-04-06] MEDS ORDERED: oxyCODONE HCL 5 MG TABLET PO PRN ×2 (17:52)
[2020-04-06] MEDS: PROMETHAZINE HCL 25 MG/1 ML VIAL IVPB PRN (18:30)
[2020-04-06] MEDS ORDERED: ACETAMINOPHEN 1000 MG/100 ML VIAL (NON FORMULARY) IVPB ONE (22:03)
[2020-04-06] MEDS ORDERED: PROCHLORPERAZINE INJECTION 10 MG/2 ML VIAL IVPB ONE (22:08)
[2020-04-07] MEDS: PROMETHAZINE HCL 25 MG/1 ML VIAL IVPB PRN (01:07)
[2020-04-07] MEDS ORDERED: ONDANSETRON 4 MG/2 ML VIAL IVPUSH ONE (01:50)
[2020-04-07] MEDS ORDERED: MORPHINE SULFATE 2 MG/ML VIAL IVPUSH ONE (01:51)
[2020-04-07] MEDS: SODIUM CHLORIDE 1,000 ML IV SCH (05:53)
[2020-04-07 06:15] LABS: HEMOGLOBIN 13.5 GM/dL (10.7-15.3); MCH 30.2 pg (25.7-33.7); MCHC 32.9 g/dl (32.0-36.0); MEAN CELL VOLUME 91.8 fl (80-96); MEAN PLT VOLUME 9.6 fl (7.5-11.1); PLATELET COUNT 206 K/MM3 (134-434); RBC 4.46 M/mm3 (3.60-5.2); RDW 13.8 % (11.6-15.6); WHITE BLOOD COUNT 9.6 K/mm3 (4.0-10.0)
[2020-04-07 07:18] LABS: POTASSIUM 3.8 mmol/L (3.5-5.1)
[2020-04-07 07:22] LABS: ALBUMIN 3.5 g/dl (3.4-5.0); BLOOD UREA NITROGEN 8.1 mg/dL (7-18); CALCIUM 8.2 mg/dL (8.5-10.1); MAGNESIUM 1.5 mg/dL (1.8-2.4)
[2020-04-07 07:24] LABS: CREATININE 0.5 mg/dL (0.55-1.3); PHOSPHOROUS 3.2 mg/dL (2.5-4.9)
[2020-04-07 07:26] LABS: BILIRUBIN,TOTAL 0.4 mg/dL (0.2-1); TOT PROT 7.1 g/dl (6.4-8.2)
[2020-04-07] MEDS ORDERED: MAGNESIUM OXIDE 400 MG TABLET (FP) PO ONE (08:24)
[2020-04-07] MEDS ORDERED: LISINOPRIL 5 MG TABLET PO SCH (10:00)
[2020-04-07] MEDS ORDERED: PANTOPRAZOLE SODIUM 40 MG VIAL IVPUSH SCH (10:00)
[2020-04-07 18:42] VITALS: BP 150/77; PULSE 71; TEMP 99.3
== END 2020-04-07 19:21 | disposition home or self-care (01) | DRG 263 ==
LOC: JER 00:08 → JERBED 06:02 → J7W 23:35
PROVIDERS: ADMIT Hospitalist; ATTEND Internal Medicine
PROC: 0FT44ZZ Resection of Gallbladder, Percutaneous Endoscopic Approach (ICD-10-PCS; principal; 2020-04-07)
DX: K80.12 Calculus of gallbladder with acute and chronic cholecystitis without obstruction (principal); R11.2 Nausea with vomiting, unspecified; I10 Essential (primary) hypertension; J45.909 Unspecified asthma, uncomplicated; F32.9 Major depressive disorder, single episode, unspecified; R10.11 Right upper quadrant pain
CPT/HCPCS: 36415; 71045-TC-FY; 74177-TC; 76705-TC; 80053; 81003; 83605; 83690; 83735; 84100; 84484; 85025; 85027; 85610; 85730; 86850; 86900; 86901; 87086; 88304-TC; 93005; 93010; 94760; 99285-25; C9803; J0131; U0003

== ENCOUNTER 2020-07-17 17:31 | Emergency (ER) | payer OTHER ==
[2020-07-17 17:51] VITALS: BP 172/92; PULSE 99; TEMP 97.5; BMI 24.9
[2020-07-17] MEDS ORDERED: LORazepam 1 MG TABLET PO ONE (18:07)
[2020-07-17] MEDS ORDERED: LORazepam 1 MG TABLET ONE (18:10)
[2020-07-17] MEDS ORDERED: ACETAMINOPHEN 325 MG TABLET (FP) PO ONE (18:47)
[2020-07-17] MEDS ORDERED: ACETAMINOPHEN 325 MG TABLET (FP) ONE (18:50)
== END 2020-07-17 19:31 | disposition home or self-care (01) ==
LOC: JERFT 17:31
DX: F41.9 Anxiety disorder, unspecified (principal); F43.20 Adjustment disorder, unspecified
CPT/HCPCS: 99283-25

== ENCOUNTER 2020-12-04 19:23 | Emergency (ER) | payer OTHER ==
[2020-12-04 19:48] VITALS: BP 167/84; PULSE 76; TEMP 98.2; BMI 24.3
[2020-12-04 22:08] LABS: EOS % 3.4 % (0-4.5); HEMATOCRIT 42.3 % (32.4-45.2); HEMOGLOBIN 13.8 GM/dL (10.7-15.3); LYMPH % 19.8 % (8-40); MCH 30.3 pg (25.7-33.7); MCHC 32.7 g/dl (32.0-36.0); MEAN CELL VOLUME 92.7 fl (80-96); MEAN PLT VOLUME 8.7 fl (7.5-11.1); MONO % 9.4 % (3.8-10.2); NEUT % 66.4 % (42.8-82.8); PLATELET COUNT 248 10^3/uL (134-434); RBC 4.56 M/mm3 (3.60-5.2); RDW 14.3 % (11.6-15.6); WHITE BLOOD COUNT 6.8 K/mm3 (4.0-10.0)
[2020-12-04 22:13] LABS: INR 1.02 (0.83-1.09); PROTHROMBIN TIME (PATIENT) 12.5 SEC (9.7-13.0)
[2020-12-04 22:15] LABS: ACTIVATED PTT 31.7 SECONDS (25.2-36.5)
[2020-12-04 22:33] LABS: CHLORIDE 103 mmol/L (98-107); SODIUM 137 mmol/L (136-145)
[2020-12-04 22:35] LABS: ALBUMIN 4.2 g/dl (3.4-5.0); ANION GAP 6 MMOL/L (8-16); BLOOD UREA NITROGEN 10.6 mg/dL (7-18); CALCIUM 9.4 mg/dL (8.5-10.1); CO2 27 mmol/L (21-32); GLUCOSE,RANDOM 93 mg/dL (74-106); MAGNESIUM 2.2 mg/dL (1.8-2.4)
[2020-12-04 22:38] LABS: CREATININE 0.6 mg/dL (0.55-1.3); SGOT/AST 17 U/L (15-37); SGPT/ALT 23 U/L (13-61)
[2020-12-04 22:39] LABS: BILIRUBIN,TOTAL 0.4 mg/dL (0.2-1); TOT PROT 8.1 g/dl (6.4-8.2)
[2020-12-04 22:40] LABS: ALK PHOS 67 U/L (45-117)
== END 2020-12-04 23:29 | disposition home or self-care (01) ==
LOC: JER 19:23
DX: F41.9 Anxiety disorder, unspecified (principal)
CPT/HCPCS: 36415; 71046-TC-FY; 80053; 82550; 83735; 84443; 84484; 85025; 85610; 85730; 93005; 93010; 99285-25

== ENCOUNTER 2021-08-09 07:27 | Emergency (ER) | payer OTHER ==
[2021-08-09 07:43] VITALS: BP 150/78; PULSE 84; TEMP 98.4; BMI 24.5
[2021-08-09] MEDS ORDERED: KETOROLAC TROMETHAMINE 60 MG/2 ML VIAL IM ONE (08:44)
[2021-08-09] MEDS ORDERED: KETOROLAC TROMETHAMINE 30 MG/1 ML VIAL ONE (08:55)
== END 2021-08-09 11:58 | disposition home or self-care (01) ==
LOC: JERFT 07:27
PROC: 3E023GC Introduction of Other Therapeutic Substance into Muscle, Percutaneous Approach (ICD-10-PCS; principal; 2021-08-09)
DX: M25.562 Pain in left knee (principal)
CPT/HCPCS: 73562-TC-LT-FY; 93971-TC; 99284-25

== ENCOUNTER 2021-10-31 17:36 | Emergency (ER) | payer OTHER ==
[2021-10-31 18:01] VITALS: BP 156/84; PULSE 79; TEMP 98.5; BMI 24.7
[2021-10-31] MEDS ORDERED: KETOROLAC TROMETHAMINE 30 MG/1 ML VIAL IM ONE (20:18)
[2021-10-31] MEDS ORDERED: LIDOCAINE 5% TOPICAL PATCH TP ONE (20:18)
[2021-10-31] MEDS ORDERED: METHOCARBAMOL 500 MG TABLET PO ONE (20:19)
[2021-10-31] MEDS ORDERED: LIDOCAINE 5% TOPICAL PATCH ONE (20:24)
[2021-10-31] MEDS ORDERED: KETOROLAC TROMETHAMINE 30 MG/1 ML VIAL ONE (20:24)
[2021-10-31] MEDS ORDERED: METHOCARBAMOL 500 MG TABLET ONE (20:24)
[2021-10-31] MEDS ORDERED: LIDOCAINE PATCH REMOVAL MC SCH (22:00)
== END 2021-10-31 23:14 | disposition home or self-care (01) ==
LOC: JER 17:36
PROC: 3E023GC Introduction of Other Therapeutic Substance into Muscle, Percutaneous Approach (ICD-10-PCS; principal; 2021-10-31)
DX: S39.012A Strain of muscle, fascia and tendon of lower back, initial encounter (principal); X50.0XXA Overexertion from strenuous movement or load, initial encounter
CPT/HCPCS: 72100-TC-FY; 99284-25

== ENCOUNTER 2023-10-08 14:11 | Emergency (ER) | payer OTHER ==
[2023-10-08 14:34] VITALS: BP 165/78; PULSE 87; RESP 17; TEMP 98.7; BMI 26.9
[2023-10-08] MEDS ORDERED: KETOROLAC TROMETHAMINE 30 MG/1 ML VIAL ONE (16:04)
[2023-10-08] MEDS: KETOROLAC TROMETHAMINE 30 MG/1 ML VIAL IM ONE (16:14)
== END 2023-10-08 17:47 | disposition home or self-care (01) ==
LOC: JER 14:11
PROC: 3E0233Z Introduction of Anti-inflammatory into Muscle, Percutaneous Approach (ICD-10-PCS; principal; 2023-10-08)
DX: M79.605 Pain in left leg (principal); M25.552 Pain in left hip; M79.662 Pain in left lower leg
CPT/HCPCS: 93971-TC; 99284-25